=== PATIENT | female | born 1940 | race Caucasian/White ===

== ENCOUNTER 2023-05-10 11:01 | Outpatient (CLI) | payer MEDICARE, SELFPAY ==
--- NOTE | ~2023-05-10 | XR_ITS ---
AP and lateral views of the right hip Clinical history: Pain Findings: No acute fracture or dislocation is seen. Osseous alignment is anatomic. The right hip join t space is preserved, with mild spurring at the superolateral acetabular margin. Soft tissues are unr emarkable. 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 Reviewed, dictated and finalized at location . 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
--- NOTE | ~2023-05-10 | XR_ITS ---
EXAMINATION: XR lumbar spine min 4V DATE: 05/10/2023 11:36 INDICATION: Lumbago with sciatica. TECHNIQUE: 5 views of the lumbar spine were obtained. COMPARISON: None. FINDINGS: There is 6 degrees levocurvature of lumbar spine. There is 3 mm anterolisthesis of L4 on L5 and L5 on S1. Vertebral body heights are normal. There is moderately decreased disc height at L1-L2, severely decreased disc height at L2-L3 and L3-L4, and mildly decreased disc height at L4-L5. There is multilevel facet joint osteoarthritis, severe bilaterally at L4-L5 and L5-S1. IMPRESSION: 1. Severe lumbar spondylosis. Reviewed, dictated and finalized at location E. 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
--- NOTE | ~2023-05-10 | XR_ITS ---
Clinical Indication: Bronchitis PA and lateral views of the chest: Comparison: 07/13/2018 Findings: There is discoid atelectasis or scarring at the right lung base. Lungs are otherwise clear. . Cardiomediastinal silhouette is stable. Bones and soft tissues are unremarkable. Impression: Discoid atelectasis or scarring right lung base, otherwise clear lungs. Reviewed, dictated and finalized at location . 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
== END 2023-05-10 11:02 | disposition home or self-care (01) ==
LOC: ANHIMG 11:08
PROVIDERS: PCP Family Medicine; Visit Provider Family Medicine
DX: M54.42 Lumbago with sciatica, left side (principal); M54.41 Lumbago with sciatica, right side; G89.29 Other chronic pain; J20.9 Acute bronchitis, unspecified; M43.06 Spondylolysis, lumbar region
CPT/HCPCS: 71046; 72110; 73502

== ENCOUNTER 2025-02-07 16:00 | Outpatient (CLI) | payer MEDICARE, SELFPAY ==
--- OUTSIDE RECORDS SUMMARY | 2025-01-20 09:00 | XMS_ITS ---
Author Organization [facility] Address [address] [facility] [address] [place] [address] Care Team Providers Care Pricing Clerk Name Role Phone Tylor MORAN, Shan Primary Care Provider Shani Castaneda Unavailable [phone] Stacey Mehta Unavailable [phone] REASON FOR VISIT 3 month f/u Social History Sex Assigned At : Social History Observation Description Sex Assigned At Female Encounters Encounter Location Date Provider Diagnosis [facility] [employer] [facility] [address] [facility] [address] [place] [address] 01/20/2025 Stacey Carvajal Plan Of Treatment Next Appt Details Provider Name:Shani Ward , 08/08/2025 02:45:00 PM, [address], [facility] [address], [place], [address], Progress Notes * NANCY BALDOB:[birth year] (84 yo F)Acc No.[id number]:01/20/2025 Patient: Yeimy NANCY HERNÁNDEZ Provider: Kiel CARVAJAL LCSW :1940 A ge:84 Y S ex:Female Date:01/20/2025 [facility] Pcp:Shan Snider MD Data: * Chief Complaints: * 3 month f/u Billing Information: * Procedure Codes: * Electronic signature of Smitha Carvajal LCSW on 02/07/2025 at 04:02 PM CDT Sign off status: Pending Signatures: No Ad Hoc Signature Added * Provider: Kiel CARVAJAL LCSW Date: 1 Generated for Archie haskins/Nahed on: 04:02 PM CDT
--- OUTSIDE RECORDS SUMMARY | 2025-02-07 09:45 | XMS_ITS ---
Author Organization [facility] [employer] Address [address] [place] [address] Care Team Providers Care Line Operator Name Role Phone Shan Snider MD Primary Care Provider Shani Castaneda Unavailable [phone] Allergies Allergen (clinical drug ingredient) Drug/Non Drug Allergy documented on EMR Reaction Allergy Type Onset Date Status Substance with sulfonamide structure and antibacterial mechanism of action (substance) SULFA (SULFONAMIDE ANTIBIOTICS) (uncoded) Unknown Allergy 04/25/2023 Active REASON FOR VISIT 3 month f/u, Follow up psychological reason Medications Medication SIG (Take, Route, Frequency, Duration) Notes Start Date End Date Status Benzonatate 100 MG Capsule Oral 05/17/2023 Not-Taking Galantamine Hydrobromide ER 8 MG Capsule Extended Release 24 Hour Oral; Duration: 30 Days Active Benzonatate 200 MG Capsule Oral 05/17/2023 Not-Taking predniSONE 20 MG Tablet Oral 05/17/2023 Not-Taking Amoxicillin 875 MG Tablet Oral 05/17/2023 Not-Taking Entresto 97-103 mg Tablet Oral 05/17/2023 Active metFORMIN HCl ER 500 MG Tablet Extended Release 24 Hour Oral 05/17/2023 Active busPIRone HCl 5 MG Tablet TAKE 1 TABLET BY MOUTH TWICE DAILY; Duration: 90 Active Escitalopram Oxalate 5 MG Tablet TAKE 1 TABLET BY MOUTH DAILY; Duration: 90 Active Desvenlafaxine Succinate ER 50 MG Tablet Extended Release 24 Hour TAKE 1 TABLET BY MOUTH DAILY; Duration: 90 Active Levothyroxine Sodium 75 MCG Tablet Oral 05/17/2023 Active Metoprolol Succinate ER 25 MG Tablet Extended Release 24 Hour Oral 05/17/2023 Active Aspirin Adult Low Strength 81 MG Tablet Delayed Release Oral 05/17/2023 Active Atorvastatin Calcium 40 MG Tablet Oral 05/17/2023 Active ProAir HFA 108 (90 Base) MCG/ACT Aerosol Solution Inhalation 05/17/2023 Act jeffrey Escitalopram Oxalate 5 MG Tablet 1 tablet Orally Once a day; Duration: 90 days 02/07/2025 Active busPIRone HCl 5 MG Tablet 1 tablet Orall y Twice a day; Duration: 90 days 02/07/2025 08/06/2025 Active Desvenlafaxine ER 50 MG Tablet Extended Release 24 Hour 1 tablet Orally Once a day; Duration: 90 days 02/07/2025 Active Exelon 4.6 MG/24HR Patch 24 Hour 1 patch to skin Transdermal Once a day Active Nystatin 645879 UNIT/GM Cream External 05/17/2023 Active Ramelteon 8 MG Tablet 1 tablet at bedtim e as needed Orally Once a day; Duration: 90 days 02/07/2025 08/06/2025 Active Social History Tobacco Use: Social History Observation Description Date Details (start date - stop date) Never Smoker NA - NA Sex Assigned At : Social History Observation Description Sex Assigned At Female Social History Miscellaneous: Social Info Question Answer Notes Advance Care Planning Advance Directive FULL CODE Sexual History: Social Info Question Answer Notes Sexual History Had sex in the past 12 months (vaginal, oral, or anal)? No Household: Social Info Question Answer Notes Household Marital status: Drug/Alcohol: Social Info Question Answer Notes Drugs Have you used drugs other than those for medical reasons in the past 12 months? No AUDIT-C (Standard) Did you have a drink containing alcohol in the past year? No Points 0 Interpretation Negative Caffeine Intake: 1-2 cups per day Tobacco Use: Social Info Question Answer Notes Tobacco Control (Standard) Tobacco use: Nonsmoker Additional Findings: Tobacco non-user Current no nsmoker Additional Details Category Social Info Options Details Migrated Social History Migrated Social History Alcohol Intake: None 01/10/2023,Tobacco Years: Never smoker 04/25/2023 Drug/Alcohol: Do you smoke marijuana? Den ies Do you drink alcohol? No Vital Signs Blood pressure systolic 174 mm Hg 02/08/20 25 Blood pressure diastolic 72 mm Hg 025 Heart Rate 59 /min 02/07/2025 Respiratory Rate 15 /min 02/07/2025 Height 62.00 in 02/07/2025 Height-cm 157.48 cm 02/07/2025 Encounters Encounter Location Date Provider Diagnosis [facility] [employer] [facility] [address] [place] [address] 02/07/2025 Shani Ward Generalized anxiety disorder F41.1 ; MDD (major depressive disorder), recurrent episode, mild F33.0 ; Other fatigue R53.83 and Memory impairment R41.3 Assessments Encounter Date Diagnosis (ICD Code) Assessment Notes Treatment Notes Treatment Clinical Notes Section Notes 02/07/2025 Generalized anxiety disorder (ICD-10 - F41.1) Learning About Generalized Anxiety Disorder material was published, Generalized Anxiety Disorder: Care Instructions material was published, Learning About Anxiety Disorders material was published, Generalized Anxiety Disorder: Care Instructions material was published, Learning About Generalized Anxiety Disorder material was published, Learning About Anxiety Disorders material was published 1. depression - Pristiq 50 mg daily - educated on rx - monitor B/P- on B/P rx seen PCP patient having labs done today and fell today at home and daughter may take her to ER also- patient was examined by EMT/[employer] today educated on Lexapro 5 mg daily educated to stay hydrated discuss how therapy will help with grief, depression anxiety and coping skills she agreed continue therapy uses pill box - daughter helps her therapy for depression, anxiety, and grief seen PCP B/P and rx options monitor B/P and HR educated to stay hydrated and adequate food intake educated on deep breathing PT and has multi care technician in home SSRI side effects discussed including but not limited to, gastric upset, nausea, vomiting, diarrhea and/or constipation, weight changes, sexual side effects including loss of libido, increased suicidal thoughts/behaviors in children and young adults, and serotonin syndrome. educated on all medications, benefits, side effects and risk, and educated on depression, anxiety, and mood d/o and educated on compliance of medications, metabolic and movement d/o education appointment's, continue therapy discussion with patient about course of treatmentand patient instructions. education on serotonin syndrome pharmacogenomic panel, discuss 2. Generalized anxiety disorder - Pristiq 50 mg daily Buspar 5 mg twice a day with a meal 3. Fatigue- Ramelteon 8 mg at bedtime 4. Abnormal grief reaction -therapy- schedule 5. Memory issues- - rx [facility] for memory 03/10 unable to complete SLUMS 02/05/24 Discussion Notes conitnue rx [facility] for memory 03/10 HX CVA 02/07/2025 MDD (major depressive disorder), recurrent episode, mild (ICD-10 - F33.0) 1. depression - Pristiq 50 mg daily - educated on rx - monitor B/P- on B/P rx seen PCP patient having labs done today and fell today at home and daughter may take her to ER also- patient was examined by EMT/[employer] today educated on Lexapro 5 mg daily educated to stay hydrated discuss how therapy will help with grief, depression anxiety and coping skills she agreed continue therapy uses pill box - daughter helps her therapy for depression, anxiety, and grief seen PCP B/P and rx options monitor B/P and HR educated to stay hydrated and adequate food intake educated on deep breathing PT and has multi care technician in home SSRI side effects discussed including but not limited to, gastric upset, nausea, vomiting, diarrhea and/or constipation, weight changes, sexual side effects including loss of libido, increased suicidal thoughts/behaviors in children and young adults, and serotonin syndrome. educated on all medications, benefits, side effects and risk, and educated on depression, anxiety, and mood d/o and educated on compliance of medications, metabolic and movement d/o education appointment's, continue therapy discussion with patient about course of treatmentand patient instructions. education on serotonin syndrome pharmacogenomic panel, discuss 2. Generalized anxiety disorder - Pristiq 50 mg daily Buspar 5 mg twice a day with a meal 3. Fatigue- Ramelteon 8 mg at bedtime 4. Abnormal grief reaction -therapy- schedule 5. Memory issues- - rx [facility] for memory 03/10 unable to complete SLUMS 02/05/24 Discussion Notes conitnue rx [facility] for memory 03/10 HX CVA 02/07/2025 Other fatigue (ICD-10 - R53.83) Fatigue: Care Instructions material was published, Fatigue: Care Instructions material was published 1. depression - Pristiq 50 mg daily - educated on rx - monitor B/P- on B/P rx seen PCP patient having labs done today and fell today at home and daughter may take her to ER also- patient was examined by EMT/[employer] today educated on Lexapro 5 mg daily educated to stay hydrated discuss how therapy will help with grief, depression anxiety and coping skills she agreed continue therapy uses pill box - daughter helps her therapy for depression, anxiety, and grief seen PCP B/P and rx options monitor B/P and HR educated to stay hydrated and adequate food intake educated on deep breathing PT and has multi care technician in home SSRI side effects discussed including but not limited to, gastric upset, nausea, vomiting, diarrhea and/or constipation, weight changes, sexual side effects including loss of libido, increased suicidal thoughts/behaviors in children and young adults, and serotonin syndrome. educated on all medications, benefits, side effects and risk, and educated on depression, anxiety, and mood d/o and educated on compliance of medications, metabolic and movement d/o education appointment's, continue therapy discussion with patient about course of treatmentand patient instructions. education on serotonin syndrome pharmacogenomic panel, discuss 2. Generalized anxiety disorder - Pristiq 50 mg daily Buspar 5 mg twice a day with a meal 3. Fatigue- Ramelteon 8 mg at bedtime 4. Abnormal grief reaction -therapy- schedule 5. Memory issues- - rx [facility] for memory 03/10 unable to complete SLUMS 02/05/24 Discussion Notes conitnue rx [facility] for memory 03/10 HX CVA 02/07/2025 Memory impairment (ICD-10 - R41.3) 1. depression - Pristiq 50 mg daily - educated on rx - monitor B/P- on B/P rx seen PCP patient having labs done today and fell today at home and daughter may take her to ER also- patient was examined by EMT/[employer] today educated on Lexapro 5 mg daily educated to stay hydrated discuss how therapy will help with grief, depression anxiety and coping skills she agreed continue therapy uses pill box - daughter helps her therapy for depression, anxiety, and grief seen PCP B/P and rx options monitor B/P and HR educated to stay hydrated and adequate food intake educated on deep breathing PT and has multi care technician in home SSRI side effects discussed including but not limited to, gastric upset, nausea, vomiting, diarrhea and/or constipation, weight changes, sexual side effects including loss of libido, increased suicidal thoughts/behaviors in children and young adults, and serotonin syndrome. educated on all medications, benefits, side effects and risk, and educated on depression, anxiety, and mood d/o and educated on compliance of medications, metabolic and movement d/o education appointment's, continue therapy discussion with patient about course of treatmentand patient instructions. education on serotonin syndrome pharmacogenomic panel, discuss 2. Generalized anxiety disorder - Pristiq 50 mg daily Buspar 5 mg twice a day with a meal 3. Fatigue- Ramelteon 8 mg at bedtime 4. Abnormal grief reaction -therapy- schedule 5. Memory issues- - rx [facility] for memory 03/10 unable to complete SLUMS 02/05/24 Discussion Notes conitnue rx [facility] for memory 03/10 HX CVA 02/07/2025 Other Preventing Depression From Coming Back: Care Instructions material was published, Learning About Depression Screening material was published, Learning About Depression material was published, Depression Treatment: Care Instructions material was published, Preventing Depression From Coming Back: Care Instructions material was published, Learning About How to Get Help During a Mental Health Crisis material was published, Depression Treatment: Care Instructions material was published, Seasonal Affective Disorder: Care Instructions material was published, Learning About Depression material was published referral to the local chapter or national office of the Alzheimer's Association ( ; http://www.alz. org), the Alzheimer's Disease Education and Referral Center (ADEAR) ( ; http://www.talisha. nih.gov/Alzheim ers/), Adjustment Disorder: Care Instructions material was published, Adjustment Disorder: Care Instructions material was published 1. depression - Pristiq 50 mg daily - educated on rx - monitor B/P- on B/P rx seen PCP patient having labs done today and fell today at home and daughter may take her to ER also- patient was examined by EMT/[employer] today educated on Lexapro 5 mg daily educated to stay hydrated discuss how therapy will help with grief, depression anxiety and coping skills she agreed continue therapy uses pill box - daughter helps her therapy for depression, anxiety, and grief seen PCP B/P and rx options monitor B/P and HR educated to stay hydrated and adequate food intake educated on deep breathing PT and has multi care technician in home SSRI side effects discussed including but not limited to, gastric upset, nausea, vomiting, diarrhea and/or constipation, weight changes, sexual side effects including loss of libido, increased suicidal thoughts/behaviors in children and young adults, and serotonin syndrome. educated on all medications, benefits, side effects and risk, and educated on depression, anxiety, and mood d/o and educated on compliance of medications, metabolic and movement d/o education appointment's, continue therapy discussion with patient about course of treatmentand patient instructions. education on serotonin syndrome pharmacogenomic panel, discuss 2. Generalized anxiety disorder - Pristiq 50 mg daily Buspar 5 mg twice a day with a meal 3. Fatigue- Ramelteon 8 mg at bedtime 4. Abnormal grief reaction -therapy- schedule 5. Memory issues- - rx [facility] for memory 03/10 unable to complete SLUMS 02/05/24 Discussion Notes conitnue rx [facility] for memory 03/10 HX CVA Plan Of Treatment Medication Medication Name Sig Start Date Stop Date Notes Escitalopram Oxalate 5 MG Tablet 1 table t Orally Once a day; Duration: 90 days 02/07/2025 busPIRone HCl 5 MG Tablet 1 tablet Orall y Twice a day; Duration: 90 days 02/07/2025 08/06/2025 Desvenlafaxine ER 50 MG Tabl et Extended Release 24 Hour 1 tablet Orally Once a day; Duration: 90 days 02/07/2025 Ramelteon 8 MG Tablet 1 tablet at bedtim e as needed Orally Once a day; Duration: 90 days 02/07/2025 08/06/2025 Treatment Notes Assessment Notes Generalized anxiety disorder Learning Ab out Generalized Anxiety Disorder material was published, Generalized Anxiety Disorder: Care Instructions material was published, Learning About Anxiety Disorders material was published, Generalized Anxiety Disorder: Care Instructions material was published, Learning About Generalized Anxiety Disorder material was published, Learning About Anxiety Disorders material was published Other fatigue Fatigue: Care Instru ctions material was published, Fatigue: Care Instructions material was published Other Preventing Depression From Coming Back: Care Instructions material was published, Learning About Depression Screening material was published, Learning About Depression material was published, Depression Treatment: Care Instructions material was published, Preventing Depression From Coming Back: Care Instructions material was published, Learning About How to Get Help During a Mental Health Crisis material was published, Depression Treatment: Care Instructions material was published, Seasonal Affective Disorder: Care Instructions material was published, Learning About Depression material was published referral to the local chapter or national office of the Alzheimer's Association ( ; http://www.alz.org), the Alzheimer's Disease Education and Referral Center (ADECO) ( ; http://www.talisha.nih.gov/Alzheimers/), Adjustment Disorder: Care Instructions material was published, Adjustment Disorder: Care Instructions material was published Next Appt Details Follow Up: 6 Months, Reason: medication follow up Provider Name:Shani Ward , 08/08/2025 02:45:00 PM, [address], [address], [place], [address], History and Physical Notes * HPI (History of Present Illness) Category Sub-Category Detail Notes Category Not es History of Presenting Problem Depression screening done Follow up depression, anxiety and grief chronic since last visit reported in W/C I been doing ok on a whole, I fell today and bump on back head, and I was dizzy and headache none now, not at fall, sleep better than I was, appettite pretty good anxiety been good, depression a lot better, take all rx no s.e no psychosis no shweta no SI/HI, not sad at all, no agitation no anxious or resltess, I feel a lot better, W/C See transistor tester see memory neurologist provider and on new memory rx goes to [facility], has palliative care specialist and department aging [place] and hx falls, [facility] unable to complete SLUMS today 02/05/24- [facility] for memory 03/10 daughter present - fell today and firemen looked at her and may go to ER today she is going to hospital for labs today also, was sitting in chair and trying to get up and fell and hit hit corner wall and palliative care specialist try to help her up, her legs and arms not strong, eat 3 meals, some GI issues and also see memory neurologist provider and on new memory rx goes to [facility], she been doing pretty good has confusion and memory issues and other that she been doing well, hx falls going to [facility] for memory 03/10- on rx passed 10/02 son passed 11/26/22 mom passed age 105 HX covid 12/07 ETOH- none smoking- denies- former long time ago labs- last few months Notes: hx weight watchers hx Cymbalta increase last month to 90 mg in hospital and Lexapro 5 mg stopped - patient reported not much just a little felt different son's kids not seen r/t his and the kids called her after a time period and she also went though the courts for grand parents rights Shweta Reported by patient.Notes:denies Psychosis Reported by patient.Notes:hard to see-dry macular and wet hx images and not as well sleep I will see on núñez a lot time from my eyes and outline womens face and images dad standing at sink, dress pants on and shaving and no shirt on, when he first I smell cig smoke and mobley, when my mom she saw my standing there and angels and was talking to him, and I feel like someone is in bed with me and I will see on wall 2 avel and heart deck of cards and come on núñez when I was in [place] and normal size playing cards, I have not seen it since Psychotherapy InterventionReported by patient.Notes:refer to [facility] rx hx hx cymbalta 10/07, Lexapro 5mg 2022, Xanax, Ramelteon, Pristiq, Aricept, Exelon patch advance care planning discuss Depression screening PHQ-9 Little interest or pleasure in doing things: Several days Feeling down, depressed, or hopeless: Se veral days Trouble falling or staying asleep, or sl eeping too much: Several days Feeling tired or having little energy: S everal days Poor appetite or overeating: Not at all Feeling bad about yourself o r that you are a failure, or have let yourself or your family down: Not at all Trouble concentrating on thi ngs, such as reading the newspaper or watching television: Not at all Moving or speaking so slowly that other people could have noticed; or the opposite, being so fidgety or restless that you have been moving around a lot more than usual: Not at all Thoughts that you would be b jaron off or of hurting yourself in some way: Not at all Total Score: 4 Interpretation: Minimal Depression Intervention Depression Screening Findings: N egative Follow-Up for Depression: Psychiatric fo llow-up Suicide Risk Assessment Performed: 02/07 Denies SI/HI no plans or intent Functional Status Functional Status Assessment D ate of last completed Functional Status Assessment:: 02/07/2025 Fall Risk Assessment:: One f all with injury in the past year fell 02/07/25 hit head and daughter may plan to take to ER Depression Screening BLESSING-7 (2018 Edition) Feelin g nervous, anxious, or on edge: Several days Not being able to stop or control worryi ng: Not at all Worrying too much about different things : Not at all Trouble relaxing: Several days Being so restless that it is hard to sit still: Not at all Becoming easily annoyed or irritable: Se veral days Feeling afraid as if something awful yuki ht happen: Not at all Total BLESSING-7 Score: 3 If you checked any problems, how difficult have they made it for you to do your work, take care of things at home, or get along with other people?: Not difficult at all Interpretation of Total: (0 to 4) No Anx iety [place]-Suicide Severity Rating Scale Suicide Risk (CSRS-screener) in the past one month Have you wished you were or wished you could go to sleep and not wake up?: No in the past one month Have y ou actually had any thoughts of killing yourself?: No Examination Category Sub-Category Detail Notes Category Not es Neurology Cognition Assessment Tools Used Total score SLUMS: Unable to complete SLUMS 02/08/25 Psychiatry Appearance: well-groomed, we ll-nourished, appears stated age Attitude: cooperative Psychomotor activity: within normal rang e Abnormal body movements: none Attention: good Degree of awareness of surroundings: rica re daughter, surrounding and place and provider Affect / mood: appropriate, full ra nge Speech / language: appropriate pitch/mo dulation, clear and coherent, normal rate, volume, and articulation (RVR), proper grammar used Insight: good Judgement: good Thought process: intact Thought content: appropriate Perceptual disorders: no perceptual diso rder noted Aggression: low Anger control: good Suicidal ideation: none Homicidal ideation: none Impulse control: good Memory status: UNABLE TO COMPLETE S LUMS see specialist [facility] memory on rx Delusions: no Hallucinations: no Comprehension - Intellectual function: a verage Dementia Safety concern scree juve for dangerousness to self and environment risks provided:: Yes Gait W/C Progress Notes * GRUPO BAL:10[birth year]06 (84 yo F)Acc No.[id number]:02/07/2025 Patient: NANCY REID Provider: CLIFF GLORIA :1940 A ge:84 Y S ex:Female Date:02/07/2025 [address] [facility] Pcp:Shan Snider MD Subjective: * Chief Complaints: * 1 . 3 month f/u. 2. Follow up psychological reason. * HPI: D epression Screening: BLESSING-7 (2018 Edition) F eeling nervous, anxious, or on edge S everal days N ot being able to stop or control worrying?Not at all W orrying too much about different things N ot at all T rouble relaxing S everal days B eing so restless that it is hard to sit still N ot at all B ecoming easily annoyed or irritable S everal days F eeling afraid as if something awful might happen N ot at all T otal BLESSING-7 Score 3 I f you checked any problems, how difficult have they made it for you to do your work, take care of things at home, or get along with other people? N ot difficult at all I nterpretation of Total ( 0 to 4) No Anxiety [place]-Suicide Severity Rating Scale: Suicide Risk (CSRS-screener) i n the past one month Have you wished you were or wished you could go to sleep and not wake up? N o i n the past one month Have you actually had any thoughts of killing yourself? N o D epression screening: PHQ-9 L ittle interest or pleasure in doing things?Several days F eeling down, depressed, or hopeless S everal days T rouble falling or staying asleep, or sleeping too much S everal days F eeling tired or having little energy S everal days P oor appetite or overeating N ot at all F eeling bad about yourself or that you are a failure, or have let yourself or your family down N ot at all T rouble concentrating on things, such as reading the newspaper or watching television N ot at all M oving or speaking so slowly that other people could have noticed; or the opposite, being so fidgety or restless that you have been moving around a lot more than usual N ot at all T houghts that you would be better off or of hurting yourself in some way N ot at all T otal Score 4 I nterpretation M inimal Depression Intervention D epression Screening Findings N egative F ollow-Up for Depression P sychiatric follow-up S uicide Risk Assessment Performed 1 Denies SI/HI no plans or intent F unctional Status: Functional Status Assessment D ate of last completed Functional Status Assessment: F all Risk Assessment: O ne fall with injury in the past year fell 02/07/25 hit head and daughter may plan to take to ER H istory of Presenting Problem: Depression screening done Follow up depression, anxiety and grief chronic since last visit reported in W/C I been doing ok on a whole, I fell today and bump on back head, and I was dizzy and headache none now, not at fall, sleep better than I was, appettite pretty good anxiety been good, depression a lot better, take all rx no s.e no psychosis no shweta no SI/HI, not sad at all, no agitation no anxious or resltess, I feel a lot better, W/C See transistor tester see memory neurologist mckayla garcia and on new memory rx goes to [facility], has palliative care specialist and department aging [place] and hx falls, [employer]IT[employer]ANDE unable to complete SLUMS today 02/05/24- [facility] for memory 03/10 daughter present - fell today and firemen looked at her and may go to ER today she is going to hospital for labs today also, was sitting in chair and trying to get up and fell and hit hit corner wall and palliative care specialist try to help her up, her legs and arms not strong, eat 3 meals, some GI issues and also see memory neurologist provider and on new memory rx goes to [facility], she been doing pretty good has confusion and memory issues and other that she been doing well, hx falls going to [facility] for memory 03/10- on rx passed 10/02 son passed 11/26/22 mom passed age 105 HX covid 12/07 ETOH- none smoking- denies- former long time ago labs- last few months Notes: hx weight watchers hx Cymbalta increase last month to 90 mg in hospital and Lexapro 5 mg stopped - patient reported not much just a little felt different son's kids not seen r/t his and the kids called her after a time period and she also went though the courts for grand parents rights Shweta Reported by mckayla fletcher.Notes:denies Psychosis Reported by mckayla fletcher.Notes:hard to see-dry macular and wet hx images and not as well sleep I will see on núñez a lot time from my eyes and outline womens face and images dad standing at sink, dress pants on and shaving and no shirt on, when he first I smell cig smoke and mobley, when my mom she saw my standing there and angels and was talking to him, and I feel like someone is in bed with me and I will see on wall 2 avel and heart deck of cards and come on núñez when I was in [place] and normal size playing cards, I have not seen it since Psychotherapy InterventionReported by mckayla fletcher.Notes:refer to [facility] rx hx hx cymbalta 10/07, Lexapro 5mg 2022, Xanax, Ramelteon, Pristiq, Aricept, Exelon patch advance care planning discuss. * ROS: Mckayla fletcher reports v ision change and eye disease/injury; h luisa to see-dry macular and wet. She reports d ifficulty hearing ([employer]IT[employer] GRANDE). reported ears bother her and pain S he reports no shortness and no palpitations; mild heart attack 01/07. She reports NO cough and no wheezing no shortness of breath She report improved diarrhea comes and goes (Metformin) reported improved some on one Metformin now, BS monitored, no abdominal pain, reported chronic nausea with certain movement, no vomiting, less constipation, normal appetite, and no GERD. She reports m uscle weakness, arthralgias/joint pain, tail bone pain, back pain, neck pain, and difficulty walking (W/C- HX FALL) s ee PCP, transistor tester She reports w eakness and gait dysfunction (W/C and assistance with daughter) no seizures, no dizziness, no migraines, reported headaches with nausea, and no tremor. hx CVA fall and hit back head 10/24/25 at home daughter may take her to ER today seen by specialist employee labor relations EMT today and having labs today at hospital She reports improved depression, sleep disturbances, restless sleep, anxiety, and memory loss. worried See Specialist [facility]- memory She reports not daily f atigue. She reports no fever and no significant weight gain. hx URI and UTI- improved hx veritgo - PCP prescribe rx hx c ovid and pneumonia 01/07 Aspiration pneumonia 04/25/23. * Medical History: * Social History: T obacco Use: T obacco Control (Standard) T obacco use: N onsmoker A dditional Findings: Tobacco non-user C urrent nonsmoker M igrated Social History: M igrated Social History: Alcohol Intake: None 01/10/2023,Tobacco Years: Never smoker 04/25/2023. S exual History: S exual History H ad sex in the past 12 months (vaginal, oral, or anal)? N o D rug/Alcohol: D rugs H ave you used drugs other than those for medical reasons in the past 12 months? N o Caffeine I ntake: 1 -2 cups per day Do you smoke marijuana?: Denies. Do you drink alcohol?: No. AUDIT-C (Standard) D id you have a drink containing alcohol in the past year? N o P oints 0 I nterpretation N egative H ousehold: H ousehold M arital status: w idowed M iscellaneous: A dvance Care Planning A dvance Directive F ULL CODE S ocial History Verified. * Medications: T aking Ramelteon 8 MG Tablet 1 tablet at bedtime as needed Orally Once a day , Taking Exelon 4.6 MG/24HR Patch 24 Hour 1 patch to skin Transdermal Once a day , Taking Nystatin 787821 UNIT/GM Cream External , Taking Atorvastatin Calcium 40 MG Tablet Oral , Taking ProAir HFA 108 (90 Base) MCG/ACT Aerosol Solution Inhalation , Taking Levothyroxine Sodium 75 MCG Tablet Oral , Taking Metoprolol Succinate ER 25 MG Tablet Extended Release 24 Hour Oral , Taking Aspirin Adult Low Strength 81 MG Tablet Delayed Release Oral , Taking metFORMIN HCl ER 500 MG Tablet Extended Release 24 Hour Oral , Taking Entresto 97-103 mg Tablet Oral , Taking Escitalopram Oxalate 5 MG Tablet TAKE 1 TABLET BY MOUTH DAILY , Taking Desvenlafaxine Succinate ER 50 MG Tablet Extended Release 24 Hour TAKE 1 TABLET BY MOUTH DAILY , Taking busPIRone HCl 5 MG Tablet TAKE 1 TABLET BY MOUTH TWICE DAILY , Taking Galantamine Hydrobromide ER 8 MG Capsule Extended Release 24 Hour Oral , Not-Taking Benzonatate 200 MG Capsule Oral , Not-Taking predniSONE 20 MG Tablet Oral , Not-Taking Amoxicillin 875 MG Tablet Oral , Not-Taking Benzonatate 100 MG Capsule Oral , Medication List reviewed and reconciled with the patient * Allergies: S ULFA (SULFONAMIDE ANTIBIOTICS): Allergy - Onset Date 04/25/2023. Allergies Verified. Objective: * Vitals: B P:174/72mm Hg, HR:59/min, RR:15/min, Wt: Not Taken - Declined by Patient, Ht: 62.00 in, Ht-cm: 157.48 cm. * Examination: P sychiatry: Dementia ?Appearance:?well-groomed, well-nourished, appears stated age.?Abnormal body movements:?none.?Affect / mood:?appropriate, full range.?Aggression:?low.?Anger control:?good.?Attention:?good.?Attitude:?cooperative.?Gait?W/C.?Homicidal ideation:?none.?Suicidal ideation:?none.?Memory status:?UNABLE TO COMPLETE SLUMS ?see specialist [facility] memory on rx. ?Degree of awareness of surroundings:?aware daughter, surrounding and place and provider.?Delusions:?no.?Hallucinations:?no.?Impulse control:?good.?Insight:?good.?Comprehension - Intellectual function:?average.?Judgement:?good.?Perceptual disorders:?no perceptual disorder noted.?Psychomotor activity:?within normal range.?Speech / language:?appropriate pitch/modulation, clear andcoherent, normal rate, volume, and articulation (RVR), proper grammar used.?Thought content:?appropriate.?Thought process:?intact.?Neurology: ?Cognition Assessment Tools Used? Total score SLUMS U nable to complete SLUMS 02/08/25 ??? Assessment: * Assessment: 1. 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 G eneralized anxiety disorder - F41.1 3 . O ther fatigue - R53.83 ? 4 . M mary carmen impairment - R41.3 1. depression - Pristiq 50 mg daily - educated on rx - monitor B/P- on B/P rx seen PCP patient having labs done today and fell today at home and daughter may take her to ER also- patient was examined by EMT/[employer] today educated onLexapro 5 mg daily educated to stay hydrated discuss how therapy will help with grief, depression anxiety and coping skills she agreed continue therapy uses pill box - daughter helps her therapy for depression, anxiety, and grief seen PCP B/P and rx options monitor B/P and HR educated to stay hydrated and adequate food intake educated on deep breathing PT and has multi care technician in home SSRI side effects discussed including but not limited to, gastric upset, nausea, vomiting, diarrhea and/or constipation, weight changes, sexual side effects including loss of libido, increased suicidal thoughts/behaviors in children and young adults, and serotonin syndrome. educated on all medications, benefits, side effects and risk, and educated on depression, anxiety, and mood d/o and educated on compliance of medications, metabolic and movement d/o education appointment's, continue therapy discussion with patient about course of treatmentand patient instructions. education on serotonin syndrome pharmacogenomic panel, discuss 2. Generalized anxiety disorder - Pristiq 50 mg daily Buspar 5 mg twice a day with a meal 3. Fatigue-Ramelteon 8 mg at bedtime 4. Abnormal grief reaction -therapy- schedule 5. Memory issues- - rx [facility] memory 03/10 unable to complete SLUMS 02/05/24 Discussion Notes marlysitnue rx [facility] memory 03/10 HX CVA Plan: * Treatment: 2. G eneralized anxiety disorder Continue busPIRone HCl Tablet, 5 MG, 1 tablet, Orally, Twice a day, 90 days, 180 Tablet, Refills 1.? Notes: Learning About Generalized Anxiety Disorder material was published, Generalized Anxiety Disorder: Care Instructions material was published, Learning About Anxiety Disorders material was published, Generalized Anxiety Disorder: Care Instructions material was published, Learning About Generalized Anxiety Disorder material was published, Learning About Anxiety Disorders material was published? 3. O ther fatigue Refill Ramelteon Tablet, 8 MG, 1 tablet at bedtime as needed, Orally, Once a day, 90 days, 90 Tablet, Refills 1. Notes: Fatigue: Care Instructions material was published, Fatigue: Care Instructions material was published 4. O thers Notes: Preventing Depression From Coming Back: Care Instructions material was published, Learning About Depression Screening material was published, Learning About Depression material was published, Depression Treatment: Care Instructions material was published, Preventing Depression From Coming Back: Care Instructions material was published, Learning About How to Get Help During a Mental Health Crisis material was published, Depression Treatment: Care Instructions material was published, Seasonal Affective Disorder: Care Instructions material was published, Learning About Depression material was published r jaal to the local chapter or national office of the Alzheimer's Association ( ;http://www.alz.org), the Alzheimer's Disease Education and Referral Center (ADECO) ( ;http://www.talisha.nih.gov/Alz heimers/), Adjustment Disorder: Care Instructions material was published, Adjustment Disorder: Care Instructions material was published * Procedure Codes: 1 036F TOBACCO NON-USER, 55246 BEHAV ASSMT W/SCORE & DOCD/STAND INSTRUMENT, G2211 VISIT COMPLEXITY INHERENT TO ONGOING CARE RELATED TO A PATIENT'S SINGLE, SERIOUS CONDITION OR A COMPLEX CONDITION * Preventive Medicine: Counseling: B P Management: X , FIRST HYPERTENSIVE BP READING FOLLOW-UP PLAN: F ollow-up 1 month Follow up with your PCP LIFESTYLE RECOMMENDATION: L ifestyle education REFERRAL TO ALTERNATIVE / PRIMARY CARE PROVIDER: Ye urias to general medical service B/P EDUCATIONeducated on healthy b/p 120/80monitor b/p at homerefer to PCP,heart healthy diet and exciselimit salt intakelimit soda intake and caffieneincrease water WEIGHT REDUCTION RECOMMENDATION: W eight-reducing diet education DIETARY RECOMMENDATIONS: D iet education Dietary Healthy-Heart Diet Screenings: D epression screening Have you had a recent depression screening? Y es * Follow Up: 6 Months (Reason: medication follow up) Billing Information: * Visit Code: [id number] OFFICE OUTPATIENT VISIT 25 MINUTES DETAILED HISTORY AND EXAM/MODERATE MEDICAL DECISION MAKING. * Procedure Codes: 1036F TOBACCO NON-USER. 26358 BEHAV ASSMT W/SCORE & DOCD/STAND INSTRUMENT. G2211 VISIT COMPLEXITY INHERENT TO ONGOING CARE RELATED TO A PATIENT'S SINGLE, SERIOUS CONDITION OR A COMPLEX CONDITION. * Sign off status: Completed true * Provider: CLIFF GLORIA Date: Generated for Archie haskins/Gema/Reggie on: 04:03 PM CDT
--- OUTSIDE RECORDS SUMMARY | 2025-02-07 16:02 | XMS_ITS | Clinical Summary ---
Author Organization [facility] Address [address] [place] [address] Care Team Providers Care Cigarette Making Examiner Name Role Phone Shan Snider MD Primary Care Provider [phone] Source Comments [facility],non-owned Affiliates and Associated Physician Practices is amultiple site organization consisting of ambulatory clinics and hospital sitesin [place], [place], [place] and [place]. This disclosure is being madepursuant to the Care Everywhere program and may not contain all information available regarding this patient. Last updated 18.[facility] Allergies Active Allergy Reactions Criticality Noted Date Comments Clonidine Other High 05/22/2023 Sulfacetamide Rash Medium 04/19/2023 Medications * Be aware that medications may not be up to date on this document. Alwaysverify current medications with the patient. DULoxetine (Cymbalta) 60 MG capsule Take 1 (one) capsule by mouth once daily 11/24/19 23 Active metFORMIN (Glucophage) 500 MG tablet Take 2 (two) tablets by mouth 2 times daily with morning and evening meal Active omeprazole (PriLOSEC) 20 MG capsule Take 1 (one) capsule by mouth daily before breakfast Active guaiFENesin ER 12hr (Mucinex) 600 MG tablet Take 1 (one) tablet by mouth every 12 hours Active enoxaparin (Lovenox) 30 MG/0.3ML injection Inject 30 (thirty) mg subcutaneously once daily Active calcium citrate-vitamin D (Citracal Plus D) 315-5 MG-MCG tablet Take 1 (one) tablet by mouth once daily Active empagliflozin (Jardiance) 25 MG tablet Take 1 (one) tablet by mouth once daily Active meclizine (Antivert) 25 MG tablet Take 1 (one) tablet by mouth 3 times daily as needed for Dizziness Active Coenzyme Q10 (CoQ10) 30 MG Take by mouth once daily Active levothyroxine (Synthroid) 75 MCG tablet Take 1 (one) tablet by mouth daily before breakfast Active atorvastatin (Lipitor) 40 MG tablet Take 1 (one) tablet by mouth at bedtime Active metoprolol succinate XL 24hr (Toprol XL) 100 MG tablet Take 1 (one) tablet by mouth once daily Active ascorbic acid (Vitamin C) 250 MG tablet Take 4 (four) tablets by mouth once daily Active multivitamin daily tablet Take 1 (one) tablet by mouth daily with food Active aspirin EC (Ecotrin) 81 MG tablet Take 1 (one) tablet by mouth once daily Active digoxin (Lanoxin) 0.125 MG tabletIndications: Cerebrovascular accident (CVA), unspecified mechanism (HCC) Take 1 (one) tablet by mouth once daily 90 tablet 4 06/15/19 24 Active Additional Information Patient not taking.Reported on 10/12/2023 nitrofurantoin monohyd macro crystals (Macrobid) 100 MG capsule Take 1 (one) capsule by mouth 2 times daily with morning and evening meal Active desvenlafaxine succinate ER 24hr (Pristiq) 50 MG tablet Take 1 (one) tablet by mouth once daily Active senna-docusate (SB Docusate Sodium/Senna) 8.6-50 MG tablet Take 1 (one) tablet by mouth 2 times daily Active ramelteon (Rozerem) 8 MG tablet Take 1 (one) tablet by mouth nightly as needed for Insomnia Active sacubitril-valsart an (Entresto) 24-26 MG tabletIndications: Acquired hypothyroidism,Lesli vular heart disease,Leg swelling,Dilated cardiomyopathy (HCC) Take 1 (one) tablet by mouth 2 times daily 90 tablet 1 10/12/19 24 Active spironolactone (Aldactone) 25 MG tabletIndications: Acquired hypothyroidism,Lesli vular heart disease,Leg swelling Take 0.5 (one-half) tablet by mouth every 2 days 90 tablet 4 10/12/19 24 Active Active Problems No known active problems Social History Tobacco Use Types Packs/Day Years Used Date Smoking Tobacco: Former Cigarettes Smokeless Tobacco: Never Tobacco Cessation:Counseling Given: Not Answered Alcohol Use Standard Drinks/Week Comments Not Currently 0 (1 standard drink = 0.6 oz pur e alcohol) PHQ-2 Answer Date Recorded Patient Health Questionnaire-2 Score 0 10/12/2023 Comments Unknown Sex and Gender Information Value Date Recorded Sex Assigned at Not on file Legal Sex Female 6:32 PM [employer] Gender Identity Not on file Sexual Orientation Not on file Last Filed Vital Signs Vital Sign Reading Time Taken Comments Blood Pressure 118/94 10/12/2023 10:24 AM CDT Pulse 82 10/12/2023 10:24 AM CDT Temperature - - Respiratory Rate 14 10/12/2023 10:24 AM CDT Oxygen Saturation 98% 10/12/2023 10:24 AM CDT Inhaled Oxygen Concentration - - Weight 83.6 kg (184 lb 6.4 oz) 06/15/2023 8:14 A M [employer] Height 154.9 cm (5' 1) 10/12/2023 10:24 AM CDT Body Mass Index - - Plan of Treatment Health Maintenance Due Date Last Done Comments BONE DENSITY TESTING 1940 DTAP/TDAP/TD VACCINES (1 - Tdap) 10/07/1959 PNEUMOCOCCAL VACCINE 50+ (1 of 1 - PCV) 1990 ZOSTER VACCINE (1 of 2) 1990 Respiratory Syncytial Virus (RSV) Vaccine Pt: or over 60 yrs (1 - 1-dose 75+ series) 10/07/2015 DEPRESSION SCREENING 04/17/2024 06/15/2023 MEDICARE AWV CALENDAR YEAR 2024 COVID-19 VACCINE (1 - 2023-2 5 season) 2024 INFLUENZA VACCINE (#1) 2024 HEPATITIS B VACCINE Aged Out No longe r eligible based on patient's age to complete this topic HIB VACCINE Aged Out No longer eligi ble based on patient's age to complete this topic HPV VACCINE Aged Out No longer eligi ble based on patient's age to complete this topic MENINGOCOCCAL (Group B) VACC INE SHARED DECISION-MAKING Aged Out No longer eligibl e based on patient's age to complete this topic MENINGOCOCCAL GROUPS A/C/Y/W VACCINE Aged Out No longer eligible b ased on patient's age to complete this topic Insurance [facility] MANAGED MEDICARE ADV Care Teams Cigarette Making Examiner Relationship Specialty Start Date End Date Shan Snider MD [address] [place] [place] [id number] PCP - General Family Medicine 10/12/23
--- OUTSIDE RECORDS SUMMARY | 2025-02-07 16:03 | XMS_ITS | Patient Health Record ---
Author Organization [facility] As [employer] [facility] Address [address] [place] [address] Care Team Providers Care Millinery Copyist Name Role Phone Shan Snider MD Primary Care Provider Shani Castaneda Unavailable [phone] Stacey Mehta Unavailable [phone] Allergies Allergen (clinical drug ingredient) Drug/Non Drug Allergy documented on EMR Reaction Allergy Type Onset Date Status Substance with sulfonamide structure and antibacterial mechanism of action (substance) SULFA (SULFONAMIDE ANTIBIOTICS) (uncoded) Unknown Allergy 04/25/2023 Active Reason For Referral No Information Medications Medication SIG (Take, Route, Frequency, Duration) Notes Start Date End Date Status Entresto 97-103 mg Tablet Oral 05/17/2023 Active Levothyroxine Sodium 75 MCG Tablet Oral 05/17/2023 Active Benzonatate 100 MG Capsule Oral 05/17/2023 Not-Taking Metoprolol Succinate ER 25 MG Tablet Extended Release 24 Hour Oral 05/17/2023 Active Galantamine Hydrobromide ER 8 MG Capsule Extended Release 24 Hour Oral; Duration: 30 Days Active Aspirin Adult Low Strength 81 MG Tablet Delayed Release Oral 05/17/2023 Active metFORMIN HCl ER 500 MG Tablet Extended Release 24 Hour Oral 05/17/2023 Active Escitalopram Oxalate 5 MG Tablet 1 tablet Orally Once a day; Duration: 90 days 02/07/2025 Active busPIRone HCl 5 MG Tablet 1 tablet Orall y Twice a day; Duration: 90 days 02/07/2025 08/06/2025 Active Desvenlafaxine ER 50 MG Tablet Extended Release 24 Hour 1 tablet Orally Once a day; Duration: 90 days 02/07/2025 Active Ramelteon 8 MG Tablet 1 tablet at bedtim e as needed Orally Once a day; Duration: 90 days 02/07/2025 08/06/2025 Active Exelon 4.6 MG/24HR Patch 24 Hour 1 patch to skin Transdermal Once a day Active busPIRone HCl 5 MG Tablet TAKE 1 TABLET BY MOUTH TWICE DAILY; Duration: 90 Active Nystatin [id number] UNIT/GM Cream External 05/17/2023 Active Benzonatate 200 MG Capsule Oral 05/17/2023 Not-Taking Atorvastatin Calcium 40 MG Tablet Oral 05/17/2023 Active predniSONE 20 MG Tablet Oral 05/17/2023 Not-Taking ProAir HFA 108 (90 Base) MCG/ACT Aerosol Solution Inhalation 05/17/2023 Act jeffrey Amoxicillin 875 MG Tablet Oral 05/17/2023 Not-Taking Escitalopram Oxalate 5 MG Tablet TAKE 1 TABLET BY MOUTH DAILY; Duration: 90 Active Desvenlafaxine Succinate ER 50 MG Tablet Extended Release 24 Hour TAKE 1 TABLET BY MOUTH DAILY; Duration: 90 Active Social History Tobacco Use: Social History [...] Den ies Do you drink alcohol? No Problems Problem Type SNOMED Code ICD Code Onset Dates Problem Status W/U Status Risk Notes Problem Moderate recurrent major depression (44091184) Major depressive disorder, recurrent, moderate (F33.1) 05/16/19 Active confirmed Problem Generalized anxiety disorder (48433606) Generalized anxiety disorder (F41.1) 05/16/19 Active confirmed Problem Adjustment disorder (68697285) Adjustment disorder, unspecified (F43.20) 04/25/19 Active confirmed Problem Fatigue (50805938) Other fatigue (R53.83) 04/25/19 Active confirmed Problem Screening for cardiovascular system disease (864486442) Encounter for screening for cardiovascular disorders (Z13.6) Active confirmed Problem Dietary management surveillance (607105366) Dietary counseling and surveillance (Z71.3) Active confirmed Problem Depression Screening (737097777) Encounter for screening for depression (Z13.31) Active confirmed Problem Mild recurrent major depression (18110735) MDD (major depressive disorder), recurrent episode, mild (F33.0) Active confirmed Problem Memory impairment (286617361) Memory impairment (R41.3) Active confirmed Vital Signs Heart Rate 59 /min 02/07/2025 Respiratory Rate 15 /min 02/07/2025 Height-cm 157.48 cm 02/07/2025 Blood pressure diastolic 72 mm Hg 02/07/2025 Height 62.00 in 02/07/2025 Blood pressure systolic 174 mm Hg 02/07/2025 Encounters Encounter Location Date Provider Diagnosis [facility] [address] [facility] [address] [place] [address] 03/18/2024 Stacey Herman Major depressive disorder, recurrent, moderate F33.1 ; Generalized anxiety disorder F41.1 and Adjustment disorder, unspecified F43.20 [facility] [employer] [facility] [address] [place] [address] [address] [facility] [address] [place] [address] 03/18/2024 Shani Ward Major depressive disorder, recurrent, moderate F33.1 ; Generalized anxiety disorder F41.1 ; Other fatigue R53.83 and Adjustment disorder, unspecified F43.20 [facility] [address] [facility] [address] [place] [address] 06/24/2024 Shani Ward Major depressive disorder, recurrent, moderate F33.1 ; Generalized anxiety disorder F41.1 ; Other fatigue R53.83 ; Adjustment disorder, unspecified F43.20 ; Encounter for screening for depression Z13.31 ; Encounter for screening for cardiovascular disorders Z13.6 and Dietary counseling and surveillance Z71.3 [facility] [employer] [address] [address] 07/22/2024 Shani Ward Encounter for screening for depression Z13.31 ; Major depressive disorder, recurrent, moderate F33.1 ; Generalized anxiety disorder F41.1 ; Other fatigue R53.83 ; Adjustment disorder, unspecified F43.20 ; Encounter for screening for cardiovascular disorders Z13.6 ; Dietary counseling and surveillance Z71.3 and Memory impairment R41.3 [facility] [employer] [address] [address] 10/21/2024 Shani Ward Encounter for screening for depression Z13.31 ; MDD (major depressive disorder), recurrent episode, mild F33.0 ; Generalized anxiety disorder F41.1 ; Other fatigue R53.83 ; Adjustment disorder, unspecified F43.20 ; Encounter for screening for cardiovascular disorders Z13.6 ; Dietary counseling and surveillance Z71.3 and Memory impairment R41.3 [facility] [employer] [address] [address] 10/21/2024 Stacey Herman Major depressive disorder, recurrent, moderate F33.1 ; Generalized anxiety disorder F41.1 and Encounter for screening for depression Z13.31 [facility] [employer] [address] [address] 02/07/2025 Shani Ward Generalized anxiety disorder F41.1 ; MDD (major depressive disorder), recurrent episode, mild F33.0 ; Other fatigue R53.83 and Memory impairment R41.3 [facility] [employer] [address] [address] 07/03/2024 Shani Ward Major depressive disorder, recurrent, moderate F33.1 Assessments Encounter Date Diagnosis (ICD Code) Assessment Notes Treatment Notes Treatment Clinical Notes Section Notes 03/18/2024 Major depressive disorder, recurrent, moderate (ICD-10 - F33.1) Mobility and Fall Risk - Assessment: Patient expresses fear of falling and sometimes sometimes is hesitant to participate in exercises and walking. Patient is able to walk short distances with assistance and a gait belt, but becomes anxious and wants to sit down. Caregivers are encouraging patient to stand up and walk, using a wheelchair behind her for safety. Dehydration - Assessment: Patient is not drinking enough fluids unless reminded. Caregivers are providing Pedialyte occasionally to combat potential dehydration. - Plan: - Consider recommending flavored, low-sugar drinks like Olipop to encourage fluid intake. Social Support and Living Situation - Assessment: Patient has a live-in caregiver, which has been beneficial. Patient is concerned about the long-term viability of staying in her current home. Patient expresses a desire to stay in her home for up to a year if possible. - Plan: - Continue to support patient's desire to remain at home while monitoring safety and ability to function. - Begin discussions about potential future living arrangements and associated financial considerations. Nutrition - Assessment: Patient is eating well with assistance from caregivers. - Plan: - Encourage continued good nutrition and monitor weight. Cognitive Stimulation - Assessment: Patient is using audiobooks for entertainment and cognitive stimulation. - Plan: - Continue to encourage use of audiobooks and other cognitive activities. Holiday Plans - Assessment: Patient expresses a desire to visit family for [place], which can serve as motivation for maintaining mobility. - Plan: - Use upcoming holiday plans as motivation for patient to continue with exercises and mobility efforts. 03/18/2024 Generalized anxiety disorder (ICD-10 - F41.1) Mobility and Fall Risk - Assessment: Patient expresses fear of falling and sometimes sometimes is hesitant to participate in exercises and walking. Patient is able to walk short distances with assistance and a gait belt, but becomes anxious and wants to sit down. Caregivers are encouraging patient to stand up and walk, using a wheelchair behind her for safety. Dehydration - Assessment: Patient is not drinking enough fluids unless reminded. Caregivers are providing Pedialyte occasionally to combat potential dehydration. - Plan: - Consider recommending flavored, low-sugar drinks like Olipop to encourage fluid intake. Social Support and Living Situation - Assessment: Patient has a live-in caregiver, which has been beneficial. Patient is concerned about the long-term viability of staying in her current home. Patient expresses a desire to stay in her home for up to a year if possible. - Plan: - Continue to support patient's desire to remain at home while monitoring safety and ability to function. - Begin discussions about potential future living arrangements and associated financial considerations. Nutrition - Assessment: Patient is eating well with assistance from caregivers. - Plan: - Encourage continued good nutrition and monitor weight. Cognitive Stimulation - Assessment: Patient is using audiobooks for entertainment and cognitive stimulation. - Plan: - Continue to encourage use of audiobooks and other cognitive activities. Holiday Plans - Assessment: Patient expresses a desire to visit family for [place], which can serve as motivation for maintaining mobility. - Plan: - Use upcoming holiday plans as motivation for patient to continue with exercises and mobility efforts. 03/18/2024 Major depressive disorder, recurrent, moderate (ICD-10 - F33.1) Preventing Depression From Coming Back: Care Instructions [...] published, Learning About Depression material was published 1. Moderate recurrent major depression - Pristiq 50 mg daily - educated on rx - monitor B/P educated to stay hydrated discuss how therapy will help with grief, depression anxiety and coping skills she agreed continue therapy uses pill box - daughter helps herrefer to therapy for depression, anxiety, and grief seen PCP B/P and rx options monitor B/P and HR educated to stay hydrated and adequate food intake educated on deep breathing PT and has customer care associate in home SSRI side effects discussed including but not limited to, gastric upset, nausea, vomiting, diarrhea and/or constipation, weight changes, sexual side effects including loss of libido, increased suicidal thoughts/behavior s in children and young adults, and serotonin syndrome. educated on all medications, benefits, side effects and risk, and educated on depression, anxiety, and mood d/o and educated on compliance of medications, metabolic and movement d/o education appointment's, continue therapy discussion with patient about course of treatmentand patient instructions. education on serotonin syndrome pharmacogenomic panel, discuss 2. Generalized anxiety disorder -Pristiq 50 mg daily Buspar 5 mg twice a day with a meal 3. Fatigue- Ramelteon 8 mg at bedtime 4. Abnormal grief reaction -therapy- schedule 5. Memory issues- short term- [facility] for memory 03/10 unable to complete SLUMS 02/05/24 Discussion Notes conitnue rx [facility] memory 03/10 HX CVA 06/24/2024 Major depressive disorder, recurrent, moderate (ICD-10 - F33.1) Preventing Depression From Coming Back: Care Instructions [...] published, Learning About Depression material was published 1. depression - Pristiq 50 mg daily - educated on rx - monitor B/P- on B/P rx seen PCP Patient was on Lexapro 5 mg 12/07 and helped anxiety and depression per patient and daughter educated on Lexapro 5 mg daily educated to stay hydrated discuss how therapy will help with grief, depression anxiety and coping skills she agreed continue therapy uses pill box - daughter helps herrefer to therapy for depression, anxiety, and grief seen PCP B/P and rx options monitor B/P and HR educated to stay hydrated and adequate food intake educated on deep breathing PT and has customer care associate in home SSRI side effects discussed including but not limited to, gastric upset, nausea, vomiting, diarrhea and/or constipation, weight changes, sexual side effects including loss of libido, increased suicidal thoughts/behavior s in children and young adults, and serotonin [...] grief reaction -therapy- schedule 5. Memory issues- short term- [facility] for memory 03/10 unable to complete SLUMS 02/05/24 Discussion Notes conitnue rx [facility] 03/10 HX CVA 10/21/2024 Major depressive disorder, recurrent, moderate (ICD-10 - F33.1) 10/21/2024 Generalized anxiety disorder (ICD-10 - F41.1) 07/22/2024 Encounter for screening for depression (ICD-10 - Z13.31) 1. depression - Pristiq 50 mg daily - educated on rx - monitor B/P- on B/P rx seen PCP Patient on Lexapro 5 mg 12/07 and helped anxiety and depression per patient and daughter educated on Lexapro 5 mg daily educated [...] educated on deep breathing PT and has customer care associate in home SSRI side effects discussed including but not limited to, gastric upset, nausea, vomiting, diarrhea and/or constipation, weight changes, sexual side effects including loss of libido, increased suicidal thoughts/behavior s in children and young adults, and serotonin [...] grief reaction -therapy- schedule 5. Memory issues- short term- rx Aricept [facility] for memory 03/10 unable to complete SLUMS 02/05/24 Discussion Notes conitnue rx [facility] for memory 03/10 HX CVA 02/07/2025 Generalized anxiety disorder (ICD-10 - F41.1) [...] to ER also- patient was examined by EMT/Senior [employer] today educated on Lexapro 5 mg daily [...] educated on deep breathing PT and has customer care associate in home SSRI side effects discussed including but not limited to, gastric upset, nausea, vomiting, diarrhea and/or constipation, weight changes, sexual side effects including loss of libido, increased suicidal thoughts/behavior s in children and young adults, and serotonin [...] -therapy- schedule 5. Memory issues- - rx [facility] for memory 03/10 unable to complete SLUMS 02/05/24 Discussion Notes conitnue rx [facility] for memory 03/10 HX CVA 10/21/2024 Encounter for screening for depression (ICD-10 - Z13.31) 1. depression - Pristiq 50 mg daily - educated on rx - monitor B/P- on B/P rx seen PCP Patient on Lexapro 5 mg 12/07 and helped anxiety and depression per patient and daughter educated on Lexapro 5 mg daily educated [...] educated on deep breathing PT and has customer care associate in home SSRI side effects discussed including but not limited to, gastric upset, nausea, vomiting, diarrhea and/or constipation, weight changes, sexual side effects including loss of libido, increased suicidal thoughts/behavior s in children and young adults, and serotonin [...] -therapy- schedule 5. Memory issues- - rx Exelon patch [facility] for memory 03/10 unable to complete SLUMS 02/05/24 Discussion Notes conitnue rx [facility] for memory 03/10 HX CVA 10/21/2024 MDD (major depressive disorder), recurrent episode, mild (ICD-10 - F33.0) 1. depression - Pristiq 50 mg daily - educated on rx - monitor B/P- on B/P rx seen PCP Patient on Lexapro 5 mg 12/07 and helped anxiety and depression per patient and daughter educated on Lexapro 5 mg daily educated [...] educated on deep breathing PT and has customer care associate in home SSRI side effects discussed including but not limited to, gastric upset, nausea, vomiting, diarrhea and/or constipation, weight changes, sexual side effects including loss of libido, increased suicidal thoughts/behavior s in children and young adults, and serotonin [...] -therapy- schedule 5. Memory issues- - rx Exelon patch [facility] for memory 03/10 unable to complete SLUMS 02/05/24 Discussion Notes conitnue rx [facility] for memory 03/10 HX [...] to ER also- patient was examined by EMT/[employer]ior [employer] today educated on Lexapro 5 mg daily [...] educated on deep breathing PT and has customer care associate in home SSRI side effects discussed including but not limited to, gastric upset, nausea, vomiting, diarrhea and/or constipation, weight changes, sexual side effects including loss of libido, increased suicidal thoughts/behavior s in children and young adults, and serotonin [...] -therapy- schedule 5. Memory issues- - rx [facility] for memory 03/10 unable to complete SLUMS 02/05/24 Discussion Notes conitnue rx [facility] for memory 03/10 HX CVA 02/07/2025 MDD (major depressive disorder), recurrent episode, mild (ICD-10 - F33.0) 1. depression - Pristiq 50 mg daily - educated on rx - monitor B/P- on B/P rx seen PCP patient having labs done today and fell today at home and daughter may take her to ER also- patient was examined by EMT/[employer]ior [employer] today educated on Lexapro 5 mg daily [...] educated on deep breathing PT and has customer care associate in home SSRI side effects discussed including but not limited to, gastric upset, nausea, vomiting, diarrhea and/or constipation, weight changes, sexual side effects including loss of libido, increased suicidal thoughts/behavior s in children and young adults, and serotonin [...] -therapy- schedule 5. Memory issues- - rx [facility] for memory 03/10 unable to complete SLUMS 02/05/24 Discussion Notes conitnue rx [facility] for memory 03/10 HX CVA 10/21/2024 Encounter for screening for depression (ICD-10 - Z13.31) 10/21/2024 Generalized anxiety disorder (ICD-10 - F41.1) Learning [...] monitor B/P- on B/P rx seen PCP Patient on Lexapro 5 mg 12/07 and helped anxiety and depression per patient and daughter educated on Lexapro 5 mg daily educated [...] educated on deep breathing PT and has customer care associate in home SSRI side effects discussed including but not limited to, gastric upset, nausea, vomiting, diarrhea and/or constipation, weight changes, sexual side effects including loss of libido, increased suicidal thoughts/behavior s in children and young adults, and serotonin [...] -therapy- schedule 5. Memory issues- - rx Exelon patch [facility] for memory 03/10 unable to complete SLUMS 02/05/24 Discussion Notes conitnue rx [facility] for memory 03/10 HX CVA 06/24/2024 Generalized anxiety disorder (ICD-10 - F41.1) Learning [...] monitor B/P- on B/P rx seen PCP Patient was on Lexapro 5 mg 12/07 and helped anxiety and depression per patient and daughter educated on Lexapro 5 mg daily educated to stay hydrated discuss how therapy will help with grief, depression anxiety and coping skills she agreed continue therapy uses pill box - daughter helps herrefer to therapy for depression, anxiety, and grief seen PCP B/P and rx options monitor B/P and HR educated to stay hydrated and adequate food intake educated on deep breathing PT and has customer care associate in home SSRI side effects discussed including but not limited to, gastric upset, nausea, vomiting, diarrhea and/or constipation, weight changes, sexual side effects including loss of libido, increased suicidal thoughts/behavior s in children and young adults, and serotonin [...] grief reaction -therapy- schedule 5. Memory issues- short term- [facility] for memory 03/10 unable to complete [facility]UMS 02/05/24 Discussion Notes conitnue rx [facility] for memory 03/10 HX CVA 03/18/2024 Generalized anxiety disorder (ICD-10 - F41.1) Learning About Generalized Anxiety Disorder material was published, Generalized Anxiety Disorder: Care Instructions material was published, Learning About Anxiety Disorders material was published, Generalized Anxiety Disorder: Care Instructions material was published, Learning About Generalized Anxiety Disorder material was published, Learning About Anxiety Disorders material was published 1. Moderate recurrent major depression - Pristiq 50 mg daily - educated on rx - monitor B/P educated to stay hydrated discuss how therapy will help with grief, depression anxiety and coping skills she agreed continue therapy uses pill box - daughter helps herrefer to therapy for depression, anxiety, and grief seen PCP B/P and rx options monitor B/P and HR educated to stay hydrated and adequate food intake educated on deep breathing PT and has customer care associate in home SSRI side effects discussed including but not limited to, gastric upset, nausea, vomiting, diarrhea and/or constipation, weight changes, sexual side effects including loss of libido, increased suicidal thoughts/behavior s in children and young adults, and serotonin syndrome. educated on all medications, benefits, side effects and risk, and educated on depression, anxiety, and mood d/o and educated on compliance of medications, metabolic and movement d/o education appointment's, continue therapy discussion with patient about course of treatmentand patient instructions. education on serotonin syndrome pharmacogenomic panel, discuss 2. Generalized anxiety disorder -Pristiq 50 mg daily Buspar 5 mg twice a day with a meal 3. Fatigue- Ramelteon 8 mg at bedtime 4. Abnormal grief reaction -therapy- schedule 5. Memory issues- short term- [facility] for memory 03/10 unable to complete SLUMS 02/05/24 Discussion Notes lela rx [facility] memory 03/10 HX CVA 03/18/2024 Adjustment disorder, unspecified (ICD-10 - F43.20) Mobility and Fall Risk - Assessment: Patient expresses fear of falling and sometimes sometimes is hesitant to participate in exercises and walking. Patient is able to walk short distances with assistance and a gait belt, but becomes anxious and wants to sit down. Caregivers are encouraging patient to stand up and walk, using a wheelchair behind her for safety. Dehydration - Assessment: Patient is not drinking enough fluids unless reminded. Caregivers are providing Pedialyte occasionally to combat potential dehydration. - Plan: - Consider recommending flavored, low-sugar drinks like Olipop to encourage fluid intake. Social Support and Living Situation - Assessment: Patient has a live-in caregiver, which has been beneficial. Patient is concerned about the long-term viability of staying in her current home. Patient expresses a desire to stay in her home for up to a year if possible. - Plan: - Continue to support patient's desire to remain at home while monitoring safety and ability to function. - Begin discussions about potential future living arrangements and associated financial considerations. Nutrition - Assessment: Patient is eating well with assistance from caregivers. - Plan: - Encourage continued good nutrition and monitor weight. Cognitive Stimulation - Assessment: Patient is using audiobooks for entertainment and cognitive stimulation. - Plan: - Continue to encourage use of audiobooks and other cognitive activities. Holiday Plans - Assessment: Patient expresses a desire to visit family for [place], which can serve as motivation for maintaining mobility. - Plan: - Use upcoming holiday plans as motivation for patient to continue with exercises and mobility efforts. 07/03/2024 Major depressive disorder, recurrent, moderate (ICD-10 - F33.1) Electronic Prior Authorization was requested for Desvenlafaxine ER 50 MG Tablet Extended Release 24 Hour. Provider can order medication once approval received. 07/22/2024 Major depressive disorder, recurrent, moderate (ICD-10 - F33.1) Preventing Depression From Coming Back: Care Instructions [...] published, Learning About Depression material was published 1. depression - Pristiq 50 mg daily - educated on rx - monitor B/P- on B/P rx seen PCP Patient on Lexapro 5 mg 12/07 and helped anxiety and depression per patient and daughter educated on Lexapro 5 mg daily educated [...] educated on deep breathing PT and has customer care associate in home SSRI side effects discussed including but not limited to, gastric upset, nausea, vomiting, diarrhea and/or constipation, weight changes, sexual side effects including loss of libido, increased suicidal thoughts/behavior s in children and young adults, and serotonin [...] grief reaction -therapy- schedule 5. Memory issues- short term- rx Arice[facility] for memory 03/10 unable to complete [facility] 02/05/24 Discussion Notes conitnue rx [facility] for memory 03/10 HX CVA 07/22/2024 Generalized anxiety disorder (ICD-10 - F41.1) Learning [...] monitor B/P- on B/P rx seen PCP Patient on Lexapro 5 mg 12/07 and helped anxiety and depression per patient and daughter educated on Lexapro 5 mg daily educated [...] educated on deep breathing PT and has customer care associate in home SSRI side effects discussed including but not limited to, gastric upset, nausea, vomiting, diarrhea and/or constipation, weight changes, sexual side effects including loss of libido, increased suicidal thoughts/behavior s in children and young adults, and serotonin [...] grief reaction -therapy- schedule 5. Memory issues- short term- rx [facility] for memory 03/10 unable to complete [facility] 02/05/24 Discussion Notes conitnue rx [facility] for memory 03/10 HX CVA 03/18/2024 Other fatigue (ICD-10 - R53.83) Fatigue: Care Instructions material was published, Fatigue: Care Instructions material was published 1. Moderate recurrent major depression - Pristiq 50 mg daily - educated on rx - monitor B/P educated to stay hydrated discuss how therapy will help with grief, depression anxiety and coping skills she agreed continue therapy uses pill box - daughter helps herrefer to therapy for depression, anxiety, and grief seen PCP B/P and rx options monitor B/P and HR educated to stay hydrated and adequate food intake educated on deep breathing PT and has customer care associate in home SSRI side effects discussed including but not limited to, gastric upset, nausea, vomiting, diarrhea and/or constipation, weight changes, sexual side effects including loss of libido, increased suicidal thoughts/behavior s in children and young adults, and serotonin syndrome. educated on all medications, benefits, side effects and risk, and educated on depression, anxiety, and mood d/o and educated on compliance of medications, metabolic and movement d/o education appointment's, continue therapy discussion with patient about course of treatmentand patient instructions. education on serotonin syndrome pharmacogenomic panel, discuss 2. Generalized anxiety disorder -Pristiq 50 mg daily Buspar 5 mg twice a day with a meal 3. Fatigue- Ramelteon 8 mg at bedtime 4. Abnormal grief reaction -therapy- schedule 5. Memory issues- short term- [facility] for memory 03/10 unable to complete [facility] 02/05/24 Discussion Notes conitnue rx [facility] for memory 03/10 HX CVA 07/22/2024 Other fatigue (ICD-10 - R53.83) Fatigue: Care Instructions material was published, Fatigue: Care Instructions material was published 1. depression - Pristiq 50 mg daily - educated on rx - monitor B/P- on B/P rx seen PCP Patient on Lexapro 5 mg 12/07 and helped anxiety and depression per patient and daughter educated on Lexapro 5 mg daily educated [...] educated on deep breathing PT and has customer care associate in home SSRI side effects discussed including but not limited to, gastric upset, nausea, vomiting, diarrhea and/or constipation, weight changes, sexual side effects including loss of libido, increased suicidal thoughts/behavior s in children and young adults, and serotonin [...] grief reaction -therapy- schedule 5. Memory issues- short term- rx [facility] for memory 03/10 unable to complete [facility] 02/05/24 Discussion Notes conitnue rx [facility] for memory 03/10 HX CVA 06/24/2024 Other fatigue (ICD-10 - R53.83) Fatigue: Care Instructions material was published, Fatigue: Care Instructions material was published 1. depression - Pristiq 50 mg daily - educated on rx - monitor B/P- on B/P rx seen PCP Patient was on Lexapro 5 mg 12/07 and helped anxiety and depression per patient and daughter educated on Lexapro 5 mg daily educated to stay hydrated discuss how therapy will help with grief, depression anxiety and coping skills she agreed continue therapy uses pill box - daughter helps herrefer to therapy for depression, anxiety, and grief seen PCP B/P and rx options monitor B/P and HR educated to stay hydrated and adequate food intake educated on deep breathing PT and has customer care associate in home SSRI side effects discussed including but not limited to, gastric upset, nausea, vomiting, diarrhea and/or constipation, weight changes, sexual side effects including loss of libido, increased suicidal thoughts/behavior s in children and young adults, and serotonin [...] grief reaction -therapy- schedule 5. Memory issues- short term- [facility] for memory 03/10 unable to complete [facility] 02/05/24 Discussion Notes conitnue rx [facility] for memory 03/10 HX CVA 10/21/2024 Other fatigue (ICD-10 - R53.83) Fatigue: Care Instructions material was published, Fatigue: Care Instructions material was published 1. depression - Pristiq 50 mg daily - educated on rx - monitor B/P- on B/P rx seen PCP Patient on Lexapro 5 mg 12/07 and helped anxiety and depression per patient and daughter educated on Lexapro 5 mg daily educated [...] educated on deep breathing PT and has customer care associate in home SSRI side effects discussed including but not limited to, gastric upset, nausea, vomiting, diarrhea and/or constipation, weight changes, sexual side effects including loss of libido, increased suicidal thoughts/behavior s in children and young adults, and serotonin [...] -therapy- schedule 5. Memory issues- - rx Exelon patch [facility] for memory 03/10 unable to complete [facility] 02/05/24 Discussion Notes conitnue rx [facility] for memory 03/10 HX CVA 02/07/2025 Memory impairment (ICD-10 - R41.3) 1. depression - Pristiq 50 mg daily - educated on rx - monitor B/P- on B/P rx seen PCP patient having labs done today and fell today at home and daughter may take her to ER also- patient was examined by EMT/[employer] today educated on Lexapro 5 mg daily [...] educated on deep breathing PT and has customer care associate in home SSRI side effects discussed including but not limited to, gastric upset, nausea, vomiting, diarrhea and/or constipation, weight changes, sexual side effects including loss of libido, increased suicidal thoughts/behavior s in children and young adults, and serotonin [...] -therapy- schedule 5. Memory issues- - rx [facility] for memory 03/10 unable to complete [facility] 02/05/24 Discussion Notes conitnue rx [facility] for memory 03/10 HX CVA 10/21/2024 Adjustment disorder, unspecified (ICD-10 - F43.20) Adjustment Disorder: Care Instructions material was published, Adjustment Disorder: Care Instructions material was published 1. depression - Pristiq 50 mg daily - educated on rx - monitor B/P- on B/P rx seen PCP Patient on Lexapro 5 mg 12/07 and helped anxiety and depression per patient and daughter educated on Lexapro 5 mg daily educated [...] educated on deep breathing PT and has customer care associate in home SSRI side effects discussed including but not limited to, gastric upset, nausea, vomiting, diarrhea and/or constipation, weight changes, sexual side effects including loss of libido, increased suicidal thoughts/behavior s in children and young adults, and serotonin [...] -therapy- schedule 5. Memory issues- - rx Exelon patch [facility] for memory 03/10 unable to complete [facility] 02/05/24 Discussion Notes conitnue rx [facility] for memory 03/10 HX CVA 06/24/2024 Adjustment disorder, unspecified (ICD-10 - F43.20) Adjustment Disorder: Care Instructions material was published, Adjustment Disorder: Care Instructions material was published 1. depression - Pristiq 50 mg daily - educated on rx - monitor B/P- on B/P rx seen PCP Patient was on Lexapro 5 mg 12/07 and helped anxiety and depression per patient and daughter educated on Lexapro 5 mg daily educated to stay hydrated discuss how therapy will help with grief, depression anxiety and coping skills she agreed continue therapy uses pill box - daughter helps herrefer to therapy for depression, anxiety, and grief seen PCP B/P and rx options monitor B/P and HR educated to stay hydrated and adequate food intake educated on deep breathing PT and has customer care associate in home SSRI side effects discussed including but not limited to, gastric upset, nausea, vomiting, diarrhea and/or constipation, weight changes, sexual side effects including loss of libido, increased suicidal thoughts/behavior s in children and young adults, and serotonin [...] grief reaction -therapy- schedule 5. Memory issues- short term- [facility] for memory 03/10 unable to complete [facility] 02/05/24 Discussion Notes conitnue rx [facility] for memory 03/10 HX CVA 03/18/2024 Adjustment disorder, unspecified (ICD-10 - F43.20) Adjustment Disorder: Care Instructions material was published, Adjustment Disorder: Care Instructions material was published 1. Moderate recurrent major depression - Pristiq 50 mg daily - educated on rx - monitor B/P educated to stay hydrated discuss how therapy will help with grief, depression anxiety and coping skills she agreed continue therapy uses pill box - daughter helps herrefer to therapy for depression, anxiety, and grief seen PCP B/P and rx options monitor B/P and HR educated to stay hydrated and adequate food intake educated on deep breathing PT and has customer care associate in home SSRI side effects discussed including but not limited to, gastric upset, nausea, vomiting, diarrhea and/or constipation, weight changes, sexual side effects including loss of libido, increased suicidal thoughts/behavior s in children and young adults, and serotonin syndrome. educated on all medications, benefits, side effects and risk, and educated on depression, anxiety, and mood d/o and educated on compliance of medications, metabolic and movement d/o education appointment's, continue therapy discussion with patient about course of treatmentand patient instructions. education on serotonin syndrome pharmacogenomic panel, discuss 2. Generalized anxiety disorder -Pristiq 50 mg daily Buspar 5 mg twice a day with a meal 3. Fatigue- Ramelteon 8 mg at bedtime 4. Abnormal grief reaction -therapy- schedule 5. Memory issues- short term- [facility] for memory 03/10 unable to complete [facility] 02/05/24 Discussion Notes conitnue rx [facility] for memory 03/10 HX CVA 07/22/2024 Adjustment disorder, unspecified (ICD-10 - F43.20) Adjustment Disorder: Care Instructions material was published, Adjustment Disorder: Care Instructions material was published 1. depression - Pristiq 50 mg daily - educated on rx - monitor B/P- on B/P rx seen PCP Patient on Lexapro 5 mg 12/07 and helped anxiety and depression per patient and daughter educated on Lexapro 5 mg daily educated [...] educated on deep breathing PT and has customer care associate in home SSRI side effects discussed including but not limited to, gastric upset, nausea, vomiting, diarrhea and/or constipation, weight changes, sexual side effects including loss of libido, increased suicidal thoughts/behavior s in children and young adults, and serotonin [...] grief reaction -therapy- schedule 5. Memory issues- short term- rx [facility] for memory 03/10 unable to complete [facility] 02/05/24 Discussion Notes conitnue rx [facility] for memory 03/10 HX CVA 07/22/2024 Encounter for screening for cardiovascular disorders (ICD-10 - Z13.6) 1. depression - Pristiq 50 mg daily - educated on rx - monitor B/P- on B/P rx seen PCP Patient on Lexapro 5 mg 12/07 and helped anxiety and depression per patient and daughter educated on Lexapro 5 mg daily educated [...] educated on deep breathing PT and has customer care associate in home SSRI side effects discussed including but not limited to, gastric upset, nausea, vomiting, diarrhea and/or constipation, weight changes, sexual side effects including loss of libido, increased suicidal thoughts/behavior s in children and young adults, and serotonin [...] grief reaction -therapy- schedule 5. Memory issues- short term- rx [facility] for memory 03/10 unable to complete [facility] 02/05/24 Discussion Notes conitnue rx [facility] for memory 03/10 HX CVA 06/24/2024 Encounter for screening for depression (ICD-10 - Z13.31) 1. depression - Pristiq 50 mg daily - educated on rx - monitor B/P- on B/P rx seen PCP Patient was on Lexapro 5 mg 12/07 and helped anxiety and depression per patient and daughter educated on Lexapro 5 mg daily educated to stay hydrated discuss how therapy will help with grief, depression anxiety and coping skills she agreed continue therapy uses pill box - daughter helps herrefer to therapy for depression, anxiety, and grief seen PCP B/P and rx options monitor B/P and HR educated to stay hydrated and adequate food intake educated on deep breathing PT and has customer care associate in home SSRI side effects discussed including but not limited to, gastric upset, nausea, vomiting, diarrhea and/or constipation, weight changes, sexual side effects including loss of libido, increased suicidal thoughts/behavior s in children and young adults, and serotonin [...] grief reaction -therapy- schedule 5. Memory issues- short term- [facility] for memory 03/10 unable to complete [facility] 02/05/24 Discussion Notes conitnue rx [facility] for memory 03/10 HX CVA 10/21/2024 Encounter for screening for cardiovascular disorders (ICD-10 - Z13.6) 1. depression - Pristiq 50 mg daily - educated on rx - monitor B/P- on B/P rx seen PCP Patient on Lexapro 5 mg 12/07 and helped anxiety and depression per patient and daughter educated on Lexapro 5 mg daily educated [...] educated on deep breathing PT and has customer care associate in home SSRI side effects discussed including but not limited to, gastric upset, nausea, vomiting, diarrhea and/or constipation, weight changes, sexual side effects including loss of libido, increased suicidal thoughts/behavior s in children and young adults, and serotonin [...] -therapy- schedule 5. Memory issues- - rx Exelon patch [facility] for memory 03/10 unable to complete [facility] 02/05/24 Discussion Notes conitnue rx [facility] memory 03/10 HX CVA 10/21/2024 Dietary counseling and surveillance (ICD-10 - Z71.3) 1. depression - Pristiq 50 mg daily - educated on rx - monitor B/P- on B/P rx seen PCP Patient on Lexapro 5 mg 12/07 and helped anxiety and depression per patient and daughter educated on Lexapro 5 mg daily educated [...] educated on deep breathing PT and has customer care associate in home SSRI side effects discussed including but not limited to, gastric upset, nausea, vomiting, diarrhea and/or constipation, weight changes, sexual side effects including loss of libido, increased suicidal thoughts/behavior s in children and young adults, and serotonin [...] -therapy- schedule 5. Memory issues- - rx Exelon patch [facility] for memory 03/10 unable to complete [facility] 02/05/24 Discussion Notes conitnue rx [facility] for memory 03/10 HX CVA 07/22/2024 Dietary counseling and surveillance (ICD-10 - Z71.3) 1. depression - Pristiq 50 mg daily - educated on rx - monitor B/P- on B/P rx seen PCP Patient on Lexapro 5 mg 12/07 and helped anxiety and depression per patient and daughter educated on Lexapro 5 mg daily educated [...] educated on deep breathing PT and has customer care associate in home SSRI side effects discussed including but not limited to, gastric upset, nausea, vomiting, diarrhea and/or constipation, weight changes, sexual side effects including loss of libido, increased suicidal thoughts/behavior s in children and young adults, and serotonin [...] grief reaction -therapy- schedule 5. Memory issues- short term- rx [facility] for memory 03/10 unable to complete [facility] 02/05/24 Discussion Notes conitnue rx [facility] for memory 03/10 HX CVA 06/24/2024 Encounter for screening for cardiovascular disorders (ICD-10 - Z13.6) 1. depression - Pristiq 50 mg daily - educated on rx - monitor B/P- on B/P rx seen PCP Patient was on Lexapro 5 mg 12/07 and helped anxiety and depression per patient and daughter educated on Lexapro 5 mg daily educated to stay hydrated discuss how therapy will help with grief, depression anxiety and coping skills she agreed continue therapy uses pill box - daughter helps herrefer to therapy for depression, anxiety, and grief seen PCP B/P and rx options monitor B/P and HR educated to stay hydrated and adequate food intake educated on deep breathing PT and has customer care associate in home SSRI side effects discussed including but not limited to, gastric upset, nausea, vomiting, diarrhea and/or constipation, weight changes, sexual side effects including loss of libido, increased suicidal thoughts/behavior s in children and young adults, and serotonin [...] grief reaction -therapy- schedule 5. Memory issues- short term- [facility] for memory 03/10 unable to complete [facility] 02/05/24 Discussion Notes conitnue rx [facility] for memory 03/10 HX CVA 06/24/2024 Dietary counseling and surveillance (ICD-10 - Z71.3) 1. depression - Pristiq 50 mg daily - educated on rx - monitor B/P- on B/P rx seen PCP Patient was on Lexapro 5 mg 12/07 and helped anxiety and depression per patient and daughter educated on Lexapro 5 mg daily educated to stay hydrated discuss how therapy will help with grief, depression anxiety and coping skills she agreed continue therapy uses pill box - daughter helps herrefer to therapy for depression, anxiety, and grief seen PCP B/P and rx options monitor B/P and HR educated to stay hydrated and adequate food intake educated on deep breathing PT and has customer care associate in home SSRI side effects discussed including but not limited to, gastric upset, nausea, vomiting, diarrhea and/or constipation, weight changes, sexual side effects including loss of libido, increased suicidal thoughts/behavior s in children and young adults, and serotonin [...] grief reaction -therapy- schedule 5. Memory issues- short term- [facility] for memory 03/10 unable to complete [facility] 02/05/24 Discussion Notes conitnue rx [facility] for memory 03/10 HX CVA 07/22/2024 Memory impairment (ICD-10 - R41.3) 1. depression - Pristiq 50 mg daily - educated on rx - monitor B/P- on B/P rx seen PCP Patient on Lexapro 5 mg 12/07 and helped anxiety and depression per patient and daughter educated on Lexapro 5 mg daily educated [...] educated on deep breathing PT and has customer care associate in home SSRI side effects discussed including but not limited to, gastric upset, nausea, vomiting, diarrhea and/or constipation, weight changes, sexual side effects including loss of libido, increased suicidal thoughts/behavior s in children and young adults, and serotonin [...] grief reaction -therapy- schedule 5. Memory issues- short term- rx [facility] for memory 03/10 unable to complete [facility] 02/05/24 Discussion Notes conitnue rx [facility] for memory 03/10 HX CVA 10/21/2024 Memory impairment (ICD-10 - R41.3) 1. depression - Pristiq 50 mg daily - educated on rx - monitor B/P- on B/P rx seen PCP Patient on Lexapro 5 mg 12/07 and helped anxiety and depression per patient and daughter educated on Lexapro 5 mg daily educated [...] educated on deep breathing PT and has customer care associate in home SSRI side effects discussed including but not limited to, gastric upset, nausea, vomiting, diarrhea and/or constipation, weight changes, sexual side effects including loss of libido, increased suicidal thoughts/behavior s in children and young adults, and serotonin [...] -therapy- schedule 5. Memory issues- - rx Exelon patch [facility] for memory 03/10 unable to complete [facility] 02/05/24 Discussion Notes conitnue rx [facility] for memory 03/10 HX CVA 03/18/2024 Other Desvenlafaxine Extended Release Oral Tablet (DESVENLAFAXINE EXTENDED-RELEASE - ORAL) material was published, Ramelteon Oral Tablet (RAMELTEON - ORAL) material was published 1. Moderate recurrent major depression - Pristiq 50 mg daily - educated on rx - monitor B/P educated to stay hydrated discuss how therapy will help with grief, depression anxiety and coping skills she agreed continue therapy uses pill box - daughter helps herrefer to therapy for depression, anxiety, and grief seen PCP B/P and rx options monitor B/P and HR educated to stay hydrated and adequate food intake educated on deep breathing PT and has customer care associate in home SSRI side effects discussed including but not limited to, gastric upset, nausea, vomiting, diarrhea and/or constipation, weight changes, sexual side effects including loss of libido, increased suicidal thoughts/behavior s in children and young adults, and serotonin syndrome. educated on all medications, benefits, side effects and risk, and educated on depression, anxiety, and mood d/o and educated on compliance of medications, metabolic and movement d/o education appointment's, continue therapy discussion with patient about course of treatmentand patient instructions. education on serotonin syndrome pharmacogenomic panel, discuss 2. Generalized anxiety disorder -Pristiq 50 mg daily Buspar 5 mg twice a day with a meal 3. Fatigue- Ramelteon 8 mg at bedtime 4. Abnormal grief reaction -therapy- schedule 5. Memory issues- short term- [facility] for memory 03/10 unable to complete [facility] 02/05/24 Discussion Notes conitnue rx [facility] memory 03/10 HX CVA 10/21/2024 Other Preventing Depression From Coming Back: Care [...] material was published referral to the local [facility] or national office of the Alzheimer[employer] ( ; http://www.alz.o rg), the Alzheimer's Disease Education and Referral Center (ADEAR) ( ; http://www.talisha.[place].gov/Alzheimer s/), 1. depression - Pristiq 50 mg daily - educated on rx - monitor B/P- on B/P rx seen PCP Patient on Lexapro 5 mg 12/07 and helped anxiety and depression per patient and daughter educated on Lexapro 5 mg daily educated [...] educated on deep breathing PT and has customer care associate in home SSRI side effects discussed including but not limited to, gastric upset, nausea, vomiting, diarrhea and/or constipation, weight changes, sexual side effects including loss of libido, increased suicidal thoughts/behavior s in children and young adults, and serotonin [...] -therapy- schedule 5. Memory issues- - rx Exelon patch [facility] for memory 03/10 unable to complete [facility] 02/05/24 Discussion Notes conitnue rx [facility] for memory 03/10 HX CVA 10/21/2024 Other Dementia with Confusion and Fear - Assessment: Nancy reports experiencing confusion about her location and fear when alone at home, which are consistent with symptoms of dementia. She has recently started a new dementia medication in the form of a patch changed every 24 hours, which she reports has been helpful. - Plan: - Continue current dementia medication patch, changed every 24 hours - Daughter to maintain camera monitoring system for remote communication and safety checks - Encourage use of audiobooks during the day for cognitive stimulation and companionship Anxiety Related to Aging and Social Isolation - Assessment: Nancy experiences anxiety related to her confusion, being alone, and concerns about social isolation as she ages. She expressed worry about people not attending her recent 84th birthday constitution party, indicating social anxiety and fear of abandonment. - Plan: - Taught coping strategies for anxiety management: - 5-4-3-2-1 grounding technique using senses - Deep breathing exercises - Encourage continued use of these techniques as needed - Maintain caregiver presence in the home for support and to alleviate fears of being alone 02/07/2025 Other Preventing Depression From Coming Back: [...] office of the Alzheimer's Association ( ; http://www.alz.o rg), the Alzheimer's Disease Education and Referral [facility] (ADEAR) ( ; http://www.talisha.n [place].gov/Alzheimer s/), Adjustment Disorder: Care Instructions material was published, Adjustment Disorder: Care Instructions material was published 1. depression - Pristiq 50 mg daily - educated on rx - monitor B/P- on B/P rx seen PCP patient having labs done today and fell today at home and daughter may take her to ER also- patient was examined by EMT/Senior [employer] Developer today educated on Lexapro 5 mg daily [...] educated on deep breathing PT and has customer care associate in home SSRI side effects discussed including but not limited to, gastric upset, nausea, vomiting, diarrhea and/or constipation, weight changes, sexual side effects including loss of libido, increased suicidal thoughts/behavior s in children and young adults, and serotonin [...] -therapy- schedule 5. Memory issues- - rx [facility] for memory 03/10 unable to complete [facility] 02/05/24 Discussion Notes conitnue rx [facility] for memory 03/10 HX CVA Plan Of Treatment Next Appt Details Provider Name:Shani Ward , 08/08/2025 02:45:00 PM, [address] [facility] [address], [facility] [address], [place], [id number], Insurance Providers Payer Name Payer Address Payer Phone Subscriber Number Group Number Insured Name Patient Relationship to Insured Coverage Start Date Coverage End Date [facility] Medicare Replacement/ Advantage - Ppo [address] [address] [place] [phone] [id number] NANCY BAL Self - patient is the insured Medical (General) History Medical History History ICD Code Problems: Abnormal grief reaction Fatigue Generalized anxiety disorder Moderate recurrent major depression Severe recurrent major depression , cva chronic UTI SHORT TERM MEMORY LOSS Surgical History Surgery Date(Month/Year) Tonsilectomy/adenoids 04/17/1945 Cataract surgery (03518) 04/17/2002 Hysterectomy (06752) 06/15/1992
--- OUTSIDE RECORDS SUMMARY | 2025-02-07 16:03 | XMS_ITS | Clinical Summary ---
Author Organization [facility] Address [address] [place] [address] Care Team Providers [facility] Art Therapist Name Role Phone Shan Snider MD Primary Care Provider [phone] Erasto Vera MD Unavailable [phone] Louie Moreno MD Unavailable [phone] Allergies Active Allergy Reactions Criticality Noted Date Comments Clonidine Hypotension High 05/22/2023 Sulfa Rash Medium 04/19/2023 Sulfacetamide Rash Medium 04/19/2023 Medications metFORMIN XR (GLUCOPHAGE XR) 500 mg 24 hr tablet Take 2 tablets (1,000 mg total) by mouth 2 (two) times a day Active multivitamin tablet Take 1 tablet by mouth daily Active coenzyme Q10 10 mg capsule Take 1 capsule (10 mg total) by mouth daily Active calcium carbonate-blane min D3 1,250mg (500mg elemental) - 5 mcg (200 units) per tablet Take 1 tablet by mouth daily Active ascorbic acid (vitamin C) 1,000 mg tablet Take 1 tablet (1,000 mg total) by mouth daily Active levothyroxine (SYNTHROID) 75 mcg tablet Take 1 tablet (75 mcg total) by mouth daily 12/08/19 23 Active empagliflozin (JARDIANCE) 25 mg tablet Take 1 tablet (25 mg total) by mouth daily 30 tablet 07/13/19 24 Active atorvastatin (LIPITOR) 40 mg tablet Take 1 tablet (40 mg total) by mouth daily 30 tablet 07/13/19 24 Active aspirin 81 mg enteric coated tablet Take 1 tablet (81 mg total) by mouth daily 30 tablet 07/13/19 24 Active acetaminophen (TYLENOL) 325 mg tabletIndicati ons:Fever,Pain Take 2 tablets (650 mg total) by mouth every 4 (four) hours as needed for pain 09/01/19 24 Active emollient cream Apply topically 2 (two) times a day 09/01/19 24 Active miconazole 2 % cream Apply topically 2 (two) times a day 09/01/19 24 Active senna-docusate (PERICOLACE) 8.6-50 mg Take 1 tablet by mouth 2 (two) times a day 09/01/19 24 Active ramelteon (ROZEREM) 8 mg tabletIndicati ons:Sleep-Onse t Insomnia Take 1 tablet (8 mg total) by mouth nightly as needed for sleep 30 tablet 09/04/19 24 Active desvenlafaxine ER 50 mg 24 hr tabletIndicati ons:Generalize d Anxiety Disorder,major depressive disorder Take 1 tablet (50 mg total) by mouth daily 30 tablet 10/30/19 24 Active hydrALAZINE (APRESOLINE) 100 mg tabletIndicati ons:hypertensi on Take 1 tablet (100 mg total) by mouth 3 (three) times a day 90 tablet 10/30/19 24 Active metoprolol tartrate (LOPRESSOR) 75 mg tablet immediate release tablet Take 1 tablet (75 mg total) by mouth 2 (two) times a day 60 tablet 10/30/19 24 Active busPIRone (BUSPAR) 5 mg tablet Take 1 tablet (5 mg total) by mouth 2 (two) times a day Active desvenlafaxine ER 50 mg 24 hr tablet Take 1 tablet (50 mg total) by mouth daily 01/17/20 24 Active calcium carbonate (OS-MANUEL) 1,250 mg (500 mg elemental) tablet Take 1 tablet (1,250 mg total) by mouth 11/02/19 24 Active galantamine ER (RAZADYNE ER) 8 mg 24 hr capsule TAKE 1 CAPSULE(8 MG) BY MOUTH DAILY WITH BREAKFAST 90 capsule 3 01/24/20 25 Active galantamine ER (RAZADYNE ER) 8 mg 24 hr capsule Take 1 capsule (8 mg total) by mouth daily with breakfast 30 capsule 2 12/25/19 25 025 Discontinued Active Problems Problem Noted Date Diagnosed Date Neuropathy 10/05/2023 Assessment & Plan (10/05/2023 6:45 PM CDT): To feet. Fluctuates. Will discuss gabapentin with patient & dtr as they are cautious with starting meds. Continue compression at this time. Debility 09/21/2023 Assessment & Plan (10/17/2023 12:09 PM CDT): Patient reports increased weakness today. Tx had to use ez-stander this am. Will check labs. BP has been increasingly high also. Anxiety 09/19/2023 Assessment & Plan (09/19/2023 11:55 AM CDT): Fear of falling Severe malnutrition 08/17/2023 Assessment & Plan (10/05/2023 6:42 PM CDT): Diet has improved. Continue to monitor. Assessment & Plan (08/22/2023 2:20 PM CDT): Gastric outlet obstruction noted on CT was ruled out with upper GI series. Currently on nocturnal tube feeds. Undergoing calorie assessment with nutrition to determine if she is meeting p.o. needs. If not, will need to discuss possibility of PEG tube Moderate vascular dementia w ithout behavioral disturbance, psychotic disturbance, mood disturbance, or anxiety 08/03/2023 Assessment & Plan (10/30/2023 1:43 PM CDT): Continues at baseline. Assessment & Plan (10/23/2023 11:02 AM CDT): Have asked SENIOR ECOLOGIST to fu with patient to evaluate cognition and if at baseline or worsen. Assessment & Plan (09/05/2023 3:12 PM CDT): Improved, ST consult Assessment & Plan (08/13/2023 10:45 AM CDT): Patient presenting with subacute history of waxing/waning mental status and confusion with intermittent difficulty with swallow dysfunction. Most notable after CVA and developed during IPR stay but has continued after discharge to home. No focal neurologic findings on examination and CT head, and per neurology evaluation in ED, no acute process, overall etiology concerning for toxic-metabolic encephalopathy - HIV, B12, RPR, TSH unremarkable - Delirium Precautions - worsened mental status 08/08, code stroke called in IR 08/09, negative CT head - PT/OT rec SNF; case management working w/ family to send referrals Assessment & Plan (08/22/2023 2:23 PM CDT): RESOLVED - Patient presented with subacute history of waxing/waning mental status and confusion with intermittent difficulty with swallow dysfunction since her CVA in 05/2023. - Evaluation on arrival with CT-Head with evolving prior CVA, HIV/RPR, B12, TSH unremarkable. - Presume related to underlying infection (UTI, acute cholecystitis), management per above - Home meclizine and duloxetine on hold at this time - Cont delirium precautions and PT/OT eval (SNF recommended at this time) - She has improved to where she is conversational, oriented and coherent - Drowsiness waxes and wanes and on 08/19 may have been more persistent. Head CT normal. Lactic acid normal. Concern to be due to infection. Blood culture and urine culture NGTD. Started Vanc/marcelino, cx negative, abx stopped 08/21 HFrEF (heart failure with reduced ejection fract ion) 06/01/2023 Assessment & Plan (10/30/2023 1:42 PM CDT): Has improved greatly. Continue Cardiology management outpt. Assessment & Plan (10/10/2023 11:09 AM CDT): Compensated. Does have Cardiology appt . Assessment & Plan (10/05/2023 6:42 PM CDT): Remains compensated. Reminded nursing to continue to use compression wraps daily. Assessment & Plan (09/15/2023 11:14 AM CDT): Edema to BLE but does not appear increased. Will add on Compression wraps & montior. Assessment & Plan (09/12/2023 11:57 AM CDT): Compensated. Assessment & Plan (09/07/2023 12:11 PM CDT): Patient follows with outside contracts officer who recently increased entresto from 49-51 mg BID --> 97-103 mg BID and who started patient on digoxin 125 mcg for inotropic support (due to HFrEF with EF 15-20%). Repeat TTE here (08/04): LVEF 55-60%, mod prox septum hypertrophy wo LVOT obstruction, aortic sclerosis, G1DD, very reduced image quality. During hospitalization Dig dc d/t elevated levels & STAR. Entresto & Spirolactone unable to be tolerated per patient dt Hyperk & soft BP. She will need fu with PCP. Assessment & Plan (09/05/2023 3:12 PM CDT): Chronic, but stable; cont rx asa, lipitor, empagliflozin, metoprolol Assessment & Plan (08/12/2023 11:56 AM CDT): -previous diagnosis of HFrEF with LVEF 15-20%, initiated on GDMT (spironolactone 25, metoprolol XL 100 mg BID, empagliflozin 25, entresto 49-51 BID) -followed by contracts officer, Dr. Bethea who initiated digoxin 125 mcg and increased entresto to 97-103 BID -digoxin level elevated on admission; stopped digoxin. -holding empagliflozin, entresto, spironolactone given shock -repeat TTE (08/04): LVEF 55-60%, mod prox septum hypertrophy wo LVOT obstruction, aortic sclerosis, G1DD, very reduced image quality Assessment & Plan (08/22/2023 2:22 PM CDT): Found to have HFrEF with EF 15-20% during admission for acute CVA (05/2023). Patient initiated on GDMT which she was able to tolerate: spironolactone 25, metoprolol XL 100 mg BID, empagliflozin 25, entresto 49-51 BID. - Followed by contracts officer, Dr. Bethea who initiated digoxin 125 mcg and increased entresto to 97-103 BID - Digoxin stopped on admission due to elevated level - Home empagliflozin & spironolactone have been on hold in setting of STAR/hyperkalemia. Entresto restarted 08/13, but stopped with persistent hyperkalemia - TTE performed here 08/04 with HFrecEF to 55-60% - Outpatient cardiology appointment - Continue strict I/O, daily weights Assessment & Plan (07/13/2023 4:09 PM CDT): Chronic, EF 15-20%; CV did not order a Life Vest due to her recent CVA. Patient had appt with Dr. Bethea Cardiology . Started on Dig 0.125mg daily, Entresto increased to 97-103 BID. Metoprolol continued. Lifevest was discussed but declined. Repeat echo planned for 6wks and if EF remains below 35% proceed with ICD. Assessment & Plan (07/04/2023 8:38 AM CDT): Compensated. Currently in 2nd level appeal with insurance. Assessment & Plan (06/16/2023 10:53 AM REFINERY OPERATOR): Patient had appt with Dr. Bethea Cardiology . Started on Dig 0.125mg daily, Entresto increased to 97-103 BID. Metoprolol continued. Lifevest was discussed but declined. Repeat echo planned for 6wks and if EF remains below 35% proceed with ICD. Monitor potassium & cr with Entreso & Spirolactone. BP stable today. Assessment & Plan (06/13/2023 12:16 PM REFINERY OPERATOR): Compensated. Continue to monitor. Assessment & Plan (06/05/2023 12:28 PM REFINERY OPERATOR): Has increased edema to BLE. Will add compression wraps. Monitor. Assessment & Plan (06/02/2023 11:17 AM REFINERY OPERATOR): Continue Entresto, Spirolactone, Jardiance, Lipitor, ASA. Outpt Cardiology fu. Assessment & Plan (06/01/2023 3:16 PM REFINERY OPERATOR): Chronic, EF 15-20%; CV did not order a Life Vest due to her recent CVA. She is to see CV post SNF discharge for continued management of CHF and for discussion of ICD. Cont rx entresto, aldactone, empagliflozin, and metoprolol I did discuss prognosis of a patient w EF 15% w daughter Rafael. She endorses understanding that this can lead to severe sx's of chf and/or sudden in the next 12mo. Hypothyroidism, unspecified 06/01/2023 Assessment & Plan (09/05/2023 3:09 PM CDT): Chronic, stable; cont rx synthroid 75mcg/day Assessment & Plan (08/11/2023 9:33 AM CDT): -synthroid 75 mcg Assessment & Plan (08/14/2023 4:05 PM CDT): - Continue synthroid 75mcg Assessment & Plan (06/01/2023 3:18 PM REFINERY OPERATOR): Chronic, stable; cont rx levothyroxine 75mcg/day Gastroesophageal reflux disease 06/01/2023 Assessment & Plan (06/01/2023 3:19 PM REFINERY OPERATOR): Chronic, stable; cont rx protonix Fall 06/01/2023 Assessment & Plan (06/01/2023 3:21 PM REFINERY OPERATOR): Rafael reports that she has become increasingly weak and she has been falling more since Dec. Cerebrovascular accident (CVA) 05/23/2023 Assessment & Plan (09/21/2023 1:26 PM CDT): DCP in place per insurance. If goes home will require WC & Lift. Pt would benefit from a wheelchair as a primary mode of transportation related to non - ambulatory or limited ability to walk. Pt has been instructed on safety and operation of a wheelchair with good comprehension. Pt will be able to have room in the home for wheel chair accessibility. The patient would not be able to complete the activities of daily living without the use of the wheel chair including but not limited mobility, toileting, bathing, etc. The use of walker or cane would not be sufficient or safe for use by the resident to complete their activities daily living more independently. The patient has safely been able the use of the wheel chair and demonstrate. Patient will need wheelchair with leg rests due to diagnosis of CVA with debility & CHF when he/she returns home. F2F performed on this date. Patient will not be able to perform daily ADLs such as mobility, toileting bathing, etc. without this wheelchair. Walker or cane will not suffice for his/her mobility. Patients home is wheelchair accessible. Patient is able to propel self in this wheelchair or that caregiver will be present to assist with wheelchair mobility. This will be a life-long need. Lift is needed for transfer between bed and a chair, wheelchair, or commode is required; and without the use of a lift, the beneficiary would be bed confined. Assessment & Plan (09/07/2023 12:10 PM CDT): Neuro signed off and will arrange outpatient f/up (chronic vascular dementia possibly contributing, may benefit from future brain MRI). Assessment & Plan (09/05/2023 3:12 PM CDT): In May, stable; Assessment & Plan (08/11/2023 9:31 AM CDT): -history of left basal ganglia lacunar CVA diagnosed in 05/2023 with residual right sided weakness. -CT Head shows stable left basal ganglia lacunar infarct without evidence of acute intracranial hemorrhage, large acute territory infarct, herniation or hydrocephalus. -continue atorvastatin and aspirin Assessment & Plan (08/17/2023 12:00 PM CDT): - Prior L basal ganglia lacunar CVA 05/2023 with residual R-side weakness; no reported evidence of arrhythmias, carotid stenosis on ultrasound evaluation. - CT Head shows stable left basal ganglia lacunar infarct without evidence of acute intracranial hemorrhage, large acute territory infarct, herniation or hydrocephalus. - Continue atorvastatin, aspirin - Continue rehab Assessment & Plan (06/02/2023 11:16 AM REFINERY OPERATOR): Continue PT/OT/ST, ASA, Lipitor. Assessment & Plan (06/01/2023 3:17 PM REFINERY OPERATOR): Subacute. She reports that she has weakness R Leg and the dysarthria. Cont asa 81mg/ lipitor; I endorse admission to snf care. The patient is at risk of injury, illness and a requirement for a higher level of care without this service. The patient needs assistance from the nurses and care team for all activities of daily living including dressing, hygeine of person and toilet, safe transfer and mobility, dietary needs, medication administration, and grooming. The patient will need physical and occupational therapy to progress to a safer level of care. Discussed care plan meri Hall. Dysarthria 05/22/2023 Assessment & Plan (06/01/2023 3:16 PM REFINERY OPERATOR): ST consult Exertional dyspnea 01/20/2023 Obesity (BMI 30.0-34.9) 01/20/2023 Hypertension 12/07/2022 Assessment & Plan (10/30/2023 1:41 PM CDT): BP elevated still. Believe s/t Pristiq, underlying CHF. Continues hydralazine 100mg TID, Lopressor BID. Will need close monitoring. Assessment & Plan (10/27/2023 12:49 PM CDT): BP remains elevated. Increase Hydralazine to 100mg TID. Monitor. Assessment & Plan (10/23/2023 10:59 AM CDT): BP improved. Mildly elevated at med times. Continue Hydralazine & Metoprolol. Monitor closely for need to review. Assessment & Plan (10/17/2023 12:17 PM CDT): BP high this am. Metoprolol increased 10/15 to 50mg BID. BP elevation could be s/t Pristiq. She is reporting increased weakness also. Will add Hydralazine 50mg TID. Monitor closely. Have asked for nursing to recheck. Assessment & Plan (10/11/2023 4:02 PM CDT): Chronic, stable; cont rx metoprolol Assessment & Plan (09/15/2023 11:15 AM CDT): BP & pulse elevated. Will increase Metoprolol to 37.5mg BID & monitor. Assessment & Plan (09/12/2023 11:57 AM CDT): BP fluctuating. Continue Metoprolol. Monitor need for adjustment & fu with Cardiology. Assessment & Plan (09/05/2023 3:08 PM CDT): Chronic, stable; cont rx metoprolol Assessment & Plan (08/10/2023 8:25 PM CDT): -holding spironolactone, metoprolol, empagliflozin, entresto in setting of hypotension and STAR Assessment & Plan (08/21/2023 12:35 PM CDT): - Home metoprolol/spironolactone has been on hold - entresto restarted 08/13, held again with rising K Assessment & Plan (06/20/2023 10:57 AM REFINERY OPERATOR): BP elevated. Will allow elevation with age. Followed by cardiology. Continue to monitor. CHF compensated with Entresto, Spirolactone, Metoprolol, Dig. Will order Dig level with next labs. Assessment & Plan (06/05/2023 12:21 PM REFINERY OPERATOR): Fluctuates. Continues on Spirolactone, Entresto, Metoprolol. Monitor for need to adjust. Assessment & Plan (06/02/2023 11:17 AM REFINERY OPERATOR): Flucutating. Monitor. Assessment & Plan (06/01/2023 3:12 PM REFINERY OPERATOR): Chronic, stable; cont rx metoprolol, valsartan Type 2 diabetes mellitus wit h hyperglycemia, without long-term current use of insulin 12/07/2022 Assessment & Plan (10/11/2023 4:03 PM CDT): Chronic, stable; cont rx metformin. Cont rx empagliflozin Assessment & Plan (09/07/2023 12:14 PM CDT): Hga1c 8.4%. Continue Metformin + Jardiance. Monitor BS. Assessment & Plan (09/05/2023 3:09 PM CDT): Chronic, stable; cont rx metformin Assessment & Plan (08/13/2023 10:34 AM CDT): -home regimen includes metformin and empagliflozin. -continues on lantus 6U (reduced from 10 units 08/12) and SSI q4h Assessment & Plan (08/18/2023 8:27 AM CDT): - Not on insulin therapy - Hgb A1C 8.4% in 05/2023; on metformin, empagliflozin at home - Holding oral DM meds - Cont Lantus 3U switch to daily, add NPH 10 units with nocturnal TF, continue with SSI - Accuchecks 5 times daily Assessment & Plan (07/13/2023 1:56 PM CDT): A1c 8.4%. Cardiology would like A1c to be below 7, Continue Merformin + Jardiance. [place] [facility] [place] would like to avoid. Monitor outpt. Assessment & Plan (06/26/2023 3:54 PM CDT): Stable; cont rx insulin glargine Assessment & Plan (06/20/2023 10:58 AM REFINERY OPERATOR): BS 160-280. Increase Lantus to 8u. Monitor. Assessment & Plan (06/16/2023 10:53 AM REFINERY OPERATOR): Cardiology would like A1c to be below 7, Continue Merformin + Jardiance. BS remain elevated. Will start Lantus 5u nightly & monitor. Would like to avoid SSI. Assessment & Plan (06/13/2023 12:05 PM REFINERY OPERATOR): A1c 8.4%. BS 178-300. Currently on Metformin 500mg BID -- increase to 1000mg BID. Montior. Continue daily BS. Assessment & Plan (06/05/2023 12:25 PM REFINERY OPERATOR): BS 204, will add daily BS checks. Check Hga1. Continue Metformin 500mg BID. Assessment & Plan (06/01/2023 3:15 PM REFINERY OPERATOR): Follow up lab ordered. Cont rx metformin Depression 12/07/2022 Assessment & Plan (10/30/2023 1:42 PM CDT): Great improvement with Pritsiq. Will need fu with manager retail store she sees in community. Assessment & Plan (10/27/2023 1:07 PM CDT): Depression/Anxiety remains improved. Assessment & Plan (10/23/2023 11:02 AM CDT): Mood remains improved. Continue Pristiq. Assessment & Plan (10/17/2023 12:11 PM CDT): Continues on Pristiq. Is having elevated BP which is s/e of medication. Will need to monitor closely & if remains elevated may need to find alternative. Assessment & Plan (10/10/2023 11:09 AM CDT): Have talked to Dtr. Patient continues to flat affect. Will dc Cymbalta & start Pristiq. Dtr agreeable to POC. Assessment & Plan (10/05/2023 6:44 PM CDT): Have not heard back from manager retail store. Her mood continues to be improved however. Continue to monitor. Assessment & Plan (09/19/2023 11:55 AM CDT): Genotesting received. She would be a good patient to start Buspar, Vraylar or Viibryd. Due to cost & increase anxiety currently would like to start Buspar. She is seen by Shani Ward psychological assistant on routine basis. Prev on 90mg Cymbalta & did trial Abilify but caused nausea. Have called & left message for Shani about switching to Buspar. Will wait for return call. Assessment & Plan (09/15/2023 11:16 AM CDT): Remains flat. Cymbalta restarted 1 wk. Will continue to monitor - consider increasing next week. Believe situational. Assessment & Plan (09/12/2023 12:00 PM CDT): Cymbalta dc inpt. Dtr requested to start something. Dr. Weller discussed with Psych & recommended restarting Cymbalta at lower dose. Restarted Monday at 30mg. Monitor. Assessment & Plan (06/26/2023 3:53 PM CDT): She had been on a GDR due to concern for her GFR. Most recent GFR 58; Daughter doesn't want her to be reduced further and in fact would like to increase the duloxetine from 40mg/d to 30mg bid (done). I have ordered repeat BMP for Monday Assessment & Plan (06/13/2023 12:13 PM REFINERY OPERATOR): Currently on cymbalta - pharmacy reporting GDR with CrCl 23. Recommend Cymbalta 40mg qhs x2wk, then 20mg x2 wks, then dc. Recommend starting Lexapro if needs alt tx. Have ordered GDR in cymbalta. Assessment & Plan (06/01/2023 3:20 PM REFINERY OPERATOR): Chronic, stable; cont rx duloxetine Resolved Problems Problem Noted Date Diagnosed Date Resolved Date Acute cystitis without hematuria 10/10/2023 10/23/2023 Assessment & Plan (10/23/2023 11:01 AM CDT): Completed abx. No reoccurrence of sx present. Have educated dtr that we do not retest unless sx present. She does have concerns r/t increased confusion. Educated likely s/t decline/hospital admissions & no s/s of UTI at this time. Assessment & Plan (10/17/2023 12:08 PM CDT): Urine CX reviewed + Kliebsiella. Complete Macrobid 100mg po bid x 7d as ordered. Assessment & Plan (10/11/2023 4:01 PM CDT): Urine CX reviewed + Kliebsiella. Sens pending. Macrobid 100mg po id x 7d ordered and patient in agreement. Assessment & Plan (10/10/2023 11:07 AM CDT): UCx >100,000 Proteus. Will wait for C&S to start abx. Anemia 08/22/2023 10/30/2023 Assessment & Plan (08/22/2023 2:26 PM CDT): Hemoglobin 6.9 from 13 on admission. No evidence of active bleeding. Normocytic. Reticulocyte count elevated, previous iron studies with mixed iron-deficiency pattern. Unclear etiology of anemia. -check LDH, haptoglobin -maintain active type and screen -transfuse for hemoglobin less than 7, consented Swelling of right upper extremity 08/21/2023 09/07/2023 Assessment & Plan (08/22/2023 2:19 PM CDT): Has PICC placed 5/2 with increasing non painful swelling, right upper extremity ultrasound without acute DVT. Plan for conservative management with elevation Hyperkalemia 08/19/2023 09/07/2023 Assessment & Plan (09/07/2023 12:15 PM CDT): Resolved inpt. Deemed to be r/t Entersto/Spirolactone. Assessment & Plan (08/20/2023 4:02 PM CDT): K 5.1 08/18. Concern to be due to entresto. - Hold entresto Hypernatremia 08/12/2023 08/17/2023 Assessment & Plan (08/16/2023 12:04 PM CDT): - Peak Na 148, improving, monitor Assessment & Plan (08/13/2023 10:45 AM CDT): Due to poor PO intake, currently NPO -BMP Q12H -D5 as indicated. -free water vs PO intake depending on swallow eval Gastric outlet obstruction 08/11/2023 0 08/17/2023 Assessment & Plan (08/17/2023 12:05 PM CDT): - Noted on CT A/P for evaluation of leukocytosis workup - NG clamped between feeds - GI reconsulted 08/14: recommended UGI series which is unremarkable and no e/o obstruction - Advance diet as tolerated - Bowel regimen - had medium (3) to large (4) BMS between 08/15-08/16 - Resolved Assessment & Plan (08/13/2023 10:46 AM CDT): - NPO - KUB 08/11 without ileus or e/o obstruction - ACCS following -bedside swallow, tube feeds vs CLD Acute cholecystitis 08/10/2023 10/05/19 Assessment & Plan (10/05/2023 6:42 PM CDT): Resolved. Drainage tube removed 09/28. Assessment & Plan (09/15/2023 11:16 AM CDT): IR fu 09/27. Keep for drain removal. Denies any acute pain. Assessment & Plan (09/12/2023 11:58 AM CDT): No drainage to drain, keep IR fu. Assessment & Plan (09/07/2023 12:16 PM CDT): Sp perc-jamilah drain placement placed by IR. Will need to fu with IR for removal & fu with gen surgrery for evaluation of cholecystectomy. IR appt scheduled for 09/27. Assessment & Plan (09/05/2023 3:13 PM CDT): Subacute, resolved; monitor follow up lab. Assessment & Plan (08/22/2023 2:24 PM CDT): - Noted on CT, IR place biliary drain 08/10. Flush 10cc BID with drain maintained to gravity Assessment & Plan (08/13/2023 10:35 AM CDT): -- CT A/P with pericholecystic fluid and stone in cystic duct. Elevated WBC. -- ACCS and IR consulted. Jamilah tube placed by IR 08/10 -- Antibiotics and volume resuscitation per Severe Sepsis. -drain placed by IR 08/10. NSTEMI (non-ST elevated myoc ardial infarction) 08/10/2023 08/11/2023 Assessment & Plan (08/10/2023 9:18 PM CDT): Troponin elevated 43-->58 in setting of septic shock. -- EKG with change in T wave inversion, no acute ST changes. -- Trend troponin q6h to peak Hyperkalemia 08/09/2023 08/11/2023 Assessment & Plan (08/10/2023 8:25 PM CDT): On admission mildly hyperkalemic at 5.2 in setting of digoxin toxicity but resolved by 08/03. Digoxin stopped. Likely elevated in setting of STAR. -- Trend daily Assessment & Plan (08/09/2023 4:49 PM CDT): On admission mildly hyperkalemic at 5.2 in setting of digoxin toxicity but resolved by 08/03. Digoxin stopped. - K levels remained high-normal for much of first week of admission. High again at 5.3 on 08/06 and 08/07. Lokelma given. Will CTM. STAR (acute kidney injury) 08/03/2023 Assessment & Plan (09/05/2023 3:10 PM CDT): Resolved, follow up lab ordered. Assessment & Plan (08/13/2023 10:38 AM CDT): -likely ATN in the setting of worsening septic shock -s/p fluid resuscitation with improvement in Cr ,1.27 this AM -avoid nephrotoxins -renally dose medications as appropriate Assessment & Plan (08/22/2023 2:22 PM CDT): RESOLVED - Initially presented after fall with mild STAR 1.30 that improved with gentle fluids, with return rise of Cr in setting of septic shock per above to peak of 1.99 - Cr improved in interim with abx, fluids, and pressors in the ICU, so far continues to improve - Avoid nephrotoxins, renal-dose meds Elevated digoxin level 08/03/202308/02 Assessment & Plan (08/03/2023 5:30 PM CDT): Patient initiated on digoxin therapy by outside contracts officer for inotropic support in [facility]. Was taking regularly though did not take this AM. Digoxin level in ED 1.4. -holding digoxin -can repeat digoxin level with AM labs to monitor clearance Urinary tract infection 08/03/202307/17 Assessment & Plan (08/09/2023 4:46 PM CDT): Some concern for frequent UTI with dysuria. Workup in ED notable for no leukocytosis (WBC 9.9) though elevated Cr and UA with >50 WBC, 1+ bacteria, 3+ LE. On admission, patient denies flank pain or dysuria (though she had altered mental status). Afebrile. - She was started on cipro --> CTX and was treated for 3 days before urine culture resulted as ESBL E coli (R - cipro, ceftriaxone, others). Given low CrCl and documented sulfa allergy, gave fosfomycin 3g x1. - Afebrile throughout admission - Miconazole cream for persistent vaginal itchiness. - Endorsed polyuria and dysuria 08/06 (says she forgot to mention it to providers over the weekend). - On 08/06, Nurse noticed yellow vaginal discharge; Gonorrhea + Chlamydia + Trach test unremarkable; Vaginosis stain grew yeast. One dose oral fluconazole given. - Worsening confusion on 08/08; Repeat UA positive and UC pending. Started meropenem. Fall, initial encounter 08/02/2023 06/0 07/2023 Assessment & Plan (08/04/2023 4:02 PM CDT): Patient with fall from bed to floor which was unwitnessed. Has caregiver and family living with her, and no reported shaking spells or episodes of loss of consciousness. No pain reported and no abnormalities on exam. -CT head without acute intracranial process -PT/OT consulted; recommends SNF -no clinical symptoms suggesting seizure or repeat syncopal episodes, Neuro signed off. Conjunctivitis of left eye 06/21/2023 0 07/03/2023 Assessment & Plan (06/21/2023 12:02 PM REFINERY OPERATOR): Acute but stable; ordered tobramycin opth 0.3% qid x 5 days L eye Pneumonia due to infectious organism 06/01/2023 06/13/2023 Assessment & Plan (06/05/2023 12:26 PM REFINERY OPERATOR): Continue Mucinex, respiratory sounds improved, CTA without rhonci. WBC trending down. Continue to monitor. Assessment & Plan (06/02/2023 11:16 AM REFINERY OPERATOR): Completed abx in hospital, continues to remain congested with rhonci. VSS, afebrile. No recent labs. Will add Mucinex 1200mg BID. Monitor, pending labs may consider XR if worsens. Assessment & Plan (06/01/2023 3:17 PM REFINERY OPERATOR): This was treated in hosp; monitor for s/s of new pulm infection. Recurrent major depressive d isorder, in remission 06/01/2023 06/01/2023 Pneumonia due to COVID-19 virus 12/07/2022 06/01/2023 Acute hypoxemic respiratory failure 12/07/2022 09/07/2023 Assessment & Plan (09/05/2023 3:11 PM CDT): Resolved, monitor for recurrence Assessment & Plan (08/21/2023 12:34 PM CDT): - Patient developed aspiration event on 08/09 in setting of progressive somnolence requiring 15L NRB initially to maintain saturations, wean to NC on transfer to floor - Maintain PEP, aspiration precautions - Weaned to RA - CXR on 08/19 no new consolidation or pneumonia Assessment & Plan (08/12/2023 11:55 AM CDT): -episode of aspiration in IR during attempted procedure -presenting on 15L NRB, now weaned to 2L NC -continue to wean O2 as tolerated for SpO2 > 92%. -encourage OOBTC and pulmonary hygiene Septic shock 12/07/2022 09/07/2023 Assessment & Plan (09/05/2023 3:11 PM CDT): Resolved. Monitor vs and follow up lab. Assessment & Plan (08/13/2023 2:54 PM CDT): -in the setting of acute cholecystitis, aspiration pneumonia also contributing -previously E. Coli UTI s/p course of antibiotics -CT with gallbladder with pericholecystic fluid and stone in cystic duct. Also with distended stomach and possible gastric outlet obstruction. Jamilah drain placed by IR 08/11 -currently off levophed since ~1800 on 08/11. -Abx: meropenum (08/08-), EOT 08/14. S/p vancomycin, jaime Assessment & Plan (08/22/2023 2:21 PM CDT): Patient initially presented after falling with ESBL E coli UTI. During admission she developed progressive leukocytosis with abdominal pain and increasing somnolence. Evaluation with CT A/P with acute cholecystitis and while in IR suite she had an aspiration episode with acute decompensation/hypoxia with hypotension requiring pressors x 48hrs. She was initially placed on Vanc/Marcelino, though ultimately maintained on meropenem to complete a 7d course to cover UTI/Cholecystitis (ends 08/14), now s/p IR perc-jamilah drain placement on 08/10 by IR - Given AMS and somewhat increase WBC and biliary drain in place, resumed Vanc/Marcelino 08/19 -> infectious work up negative. Abx dc 08/21 Elevated troponin I level 12/07/2022 Encounters Date Type Department Care Team Description 12/23/2024 Telephone [facility] Diagnostic [address] [place] [address] Jenny Castellano, RMA Medication Request 12/20/[address] [place] [address] Gavi Richardson RN 11/07/[address] [place] [address] Kinjal Mercado, CHAVA from Last 3 Months Immunizations Immunization Administration Dates Next Due Tdap 04/20/2023 Surgical History Surgery Date Site/Laterality Comments HYSTERECTOMY CENTRAL LINE PLACEMENT > 5 YEARS 08/10/2023 N/A GALLBLADDER DRAINAGE 08/11/2023 N/A IR CHOLANGIOGRAM THROUGH EXISTING CATHETER 09/28/2023 N/A Medical History Medical History Date Comments Depression Hypertension Diabetes mellitus Chronic systolic congestive heart failure (HCC) 06/01/2023 Other specified hypothyroidism 06/01/2023 Recurrent major depressive disorder, in remissio n 06/01/2023 Social History Tobacco Use Types Packs/Day Years Used Date Smoking Tobacco: Never Smokeless Tobacco: Never Tobacco Cessation:Counseling Given: No [facility] Utilities Answer Date Recorded In the past 12 months has HAUL, gas, oil, or water [employer] threatened to shut off services in your home? No 08/11/2023 Social Connection and Isolation Panel Answer Date Recorded In a typical week, how many times do you talk on the phone with family, friends, or neighbors? More than three times a week 08/11/2023 How often do you get togethe r with friends or relatives? More than three times a week 08/11/2023 How often do you attend [facility] or oriental orthodox services? 1 to 4 times per year 08/11/2023 Do you belong to any clubs o r organizations such as methodist groups, unions, fraternal or athletic groups, or school groups? No 08/11/2023 How often do you attend meet ings of the clubs or organizations you belong to? Never 08/11/2023 Are you , , di vorced, , never , or living with a partner? 08/11/2023 AUDIT-C Answer Date Recorded Q1: How often do you have a drink containing alcohol? Never 09/28/2023 Q2: How many drinks containi ng alcohol do you have on a typical day when you are drinking? Patient does not drink Q3: How often do you have si x or more drinks on one occasion? Never 09/28/2023 Overall Financial Resource Strain (CARDIA) Answe r Date Recorded How hard is it for you to pa y for the very basics like food, housing, medical care, and heating? Not hard at all 08/11/2023 Hunger Vital Sign Answer Date Recorded Within the past 12 months, y ou worried that your food would run out before you got the money to buy more. Never true 09/28/19 24 Within the past 12 months, t he food you bought just didn't last and you didn't have money to get more. Never true 09/28/2023 PRAPARE - Transportation Answer Date Re corded In the past 12 months, has l ack of transportation kept you from medical appointments or from getting medications? No 07/17 In the past 12 months, has l ack of transportation kept you from meetings, work, or from getting things needed for daily living? No 08/11/2023 Housing Stability Vital Sign Answer Charlie e Recorded In the last 12 months, was t here a time when you were not able to pay the mortgage or rent on time? No 08/11/2023 In the last 12 months, how many places have you lived? 1 08/11/2023 In the last 12 months, was t here a time when you did not have a steady place to sleep or slept in a fdc (including now)? No 08/11/2023 Personal Safety Answer Date Recorded Have you ever been in or are you currently in a harmful physical or emotional relationship or is someone making you feel afraid or unsafe? Denies 12/12/2023 Comments No Sex and Gender Information Value Date Recorded Sex Assigned at Not on file Legal Sex Female 11:18 AM REFINERY OPERATOR Gender Identity Female 12/07/2022 1:47 PM CDT Sexual Orientation Not on file Obstetrics History Last Filed Vital Signs Vital Sign Reading Time Taken Comments Blood Pressure 170/74 09/04/2024 4:12 PM CDT Pulse 72 09/04/2024 4:12 PM CDT Temperature 36.4 C (97.6 F) 12/12/2023 4:35 PM CDT Respiratory Rate 16 12/12/2023 6:24 PM CDT Oxygen Saturation 95% 12/13/2023 3:00 AM CDT Inhaled Oxygen Concentration - - Weight 74.8 kg (165 lb) 12/12/2023 2:30 PM CDT Height 160 cm (5' 3) 09/04/2024 4:12 PM CDT Body Mass Index 29.23 12/12/2023 2:30 PM CDT Plan of Treatment Health Maintenance Due Date Last Done Comments Albumin Creatinine Ratio, Urine 1940 Depression Screening 1940 Osteoporosis Screening-Bone Density Scan 1940 Dilated Eye Exam 1940 Foot Exam 1940 Hepatitis B Screening 1958 Pneumococcal vaccine 65+ (1 of 2 - PCV) 10/07/1959 Zoster Vaccine (1 of 2) 1990 Well Visit 65+ 2005 Hemoglobin A1C 02/14/2024 08/15/2023, 04, 06/12/2023, Additional history exists Lipid Panel 05/23/2024 05/23/2023, 12/07/2022 Fall Risk Assessment 08/31/2024 09/01/2023 eGFR 12/11/2024 12/12/2023, 07/0 12/2023, 10/17/2023, Additional history exists Covid-19 Vaccine (2024-2 6 season) 2024 03/28/2021, 08/09/2020, 07/07/2020 Influenza Vaccine (#1) 2024 02/11/2021, 2012 DTaP/Tdap/Td Vaccine (2 - Td or Tdap) 04/20/2033 04/20/2023 Procedures Procedure Name Priority Date/Time Associated Diagnosis Comments EGFR STAT 12/12/2023 3:15 PM CDT HEMOGLOBIN A1C Routine 08/15/2023 4:59 AM CDT LIPID PANEL Routine 05/23/2023 5:51 AM REFINERY OPERATOR from Last 3 Months or Most Recently Relevant to Health Maintenance Results * eGFR (12/12/2023 3:15 PM CDT) eGFR 63 >=60 mL/min/1. 73 m2 Comment: Interpretive Data Reference Interval Normal >/= 90 mL/min/1.73m2 Mildly decreased* 60 - 89 mL/min/1.73m2 Mildly to moderately decreased 45 - 59 mL/min/1.73m2 Moderately to severely decreased 30 - 44 mL/min/1.73m2 Severely decreased 15 - 29 mL/min/1.73m2 Kidney Failure < 15 mL/min/1.73m2 *Relative to young adult level Estimated glomerular filtration rate is determined by the 2020 CKD-EPI equation recommended by the National Kidney Foundation (A Unifying Approach to GFR Estimation: Recommendations of the NKF-ASK Task Force on Reassessing the Inclusion of Race in Diagnosing Kidney Disease, JASN 202). The CKD-EPI equation should not be used for patients with unstable renal function and has not been validated in children and those over 70. Current interpretive data was last reviewed 2021. Blood 12/12/2023 3:15 PM CDT 12/12/2023 3:51 PM CDT us Arturo Conner MD LAB BLOOD ORDERABLES Final Resul t [facility] Department [place] [address] * (ABNORMAL) Hemoglobin A1c (08/15/2023 4:59 AM CDT) Hgb A1C 7.9(H) 4.0 - 5.6 % Estimated Average Glucose 180 mg/dL [facility] Comment: The ADA recommends reporting an estimated Average Glucose (eAG) with all Hemoglobin A1c results using the equation derived from a study of 507 normal and diabetic adults. Minority populations were underrepresented and children were not included. (Diabetes Care 2020; 43(S1): S66-S76). The eAG is not equivalent to a fasting glucose. Blood 08/15/2023 4:59 AM CDT 08/15/2023 5:29 AM CDT Ute Saleh MD LAB BLOOD ORDERABLES Final Result [facility] Department [place] [address] * (ABNORMAL) Lipid panel (05/23/2023 5:51 AM REFINERY OPERATOR) Pathologist [facility] Cholesterol 152 30 - 199 mg/dL [facility] Comment: Interpretive Data Ages < or = 19 years Acceptable: <170 mg/dL Borderline high: 170-199 mg/dL High: >or= 200 mg/dL Ages > or = 20 years Desirable: <200 mg/dL Borderline high: 200-239 mg/dL High: >or= 240 mg/dL Literature References: 1. Expert Panel on Integrated Guidelines for Cardiovascular Health and Risk Reduction in Children and Adolescents. Pediatrics 2011;128:S213 2. NCEP Expert Panel. Circulation 2004;110:227 Current Interpretive Data was last revised on 2017. Testing performed by: [facility], [address] [place] [address]., [id number] Triglycerides 166(H) <=149 mg/dL [facility] Comment: Interpretive Data Ages < or = 9 years Acceptable: <75 mg/dL Borderline high: 75-99 mg/dL High: >or= 100 mg/dL Ages 10 to 20 years Acceptable: <90 mg/dL Borderline high: 90-129 mg/dL High: >or= 130 mg/dL Ages > or = 20 years Desirable: <150 mg/dL Borderline high: 150-199 mg/dL High: 200-499 mg/dL Very high: >or= 499 mg/dL Literature References: 1. Expert Panel on Integrated Guidelines for Cardiovascular Health and Risk Reduction in Children and Adolescents. Pediatrics 2011;128:S213 2. NCEP Expert Panel. Circulation 2004;110:227 Current Interpretive Data was last revised on 2017. Testing performed by: [address] [address] HDL 47 >=40 mg/dL [facility] Comment: Interpretive Data Ages < or = 19 years Acceptable: >45 mg/dL Borderline low: 40-45 mg/dL Low: <40 mg/dL Ages > or = 20 years Desirable: >or= 60 mg/dL Low: <40 mg/dL Literature References: 1. Expert Panel on Integrated Guidelines for Cardiovascular Health and Risk Reduction in Children and Adolescents. Pediatrics 2011;128:S213 2. NCEP Expert Panel. Circulation 2004;110:227 Current Interpretive Data was last revised on 2017. Testing performed by: [address] [address] LDL, calculated 72 <=129 mg/dL [facility] Comment: Interpretive Data Ages < or = 19 years Acceptable: <110 mg/dL Borderline high: 110-129 mg/dL High: >or= 130 mg/dL Ages > or = 20 years Optimal: <100 mg/dL Near optimal: 100-129 mg/dL Borderline high: 130-159 mg/dL High: >160 mg/dL Literature References: 1. Expert Panel on Integrated Guidelines for Cardiovascular Health and Risk Reduction in Children and Adolescents. Pediatrics 2011;128:S213 2. NCEP Expert Panel. Circulation 2004;110:227 Current Interpretive Data was last revised on 2017. Testing performed by: [address] [address] Non-HDL Cholesterol 105 mg/dL [facility] Comment: Interpretive Data Ages < or = 19 years Acceptable: <120 mg/dL Borderline high: 120-144 mg/dL High: >145 mg/dL Ages > or = 20 years When triglycerides are >200 mg/dL, Non-HDL cholesterol is a secondary target of therapy with treatment goals that are 30 mg/dL greater than the LDL cholesterol target. Literature References: 1. Expert Panel on Integrated Guidelines for Cardiovascular Health and Risk Reduction in Children and Adolescents. Pediatrics 2011;128:S213 2. NCEP Expert Panel. Circulation 2004;110:227 Current Interpretive Data was last revised on 2017. Testing performed by: [facility], [address] [place] [address]., [id number] Chol/HDL ratio 3 [facility] Comment:Testing performed by : [address] [id number] Blood 05/23/2023 5:51 AM REFINERY OPERATOR 05/23/2023 6:08 AM REFINERY OPERATOR us Cira Sullivan MD LAB BLOOD ORDERABLES Final Result Performing Organization Address City/State/[facility] Co de Phone Number [facility] [address] [facility] Department [place] [address] from Last 3 Months or Most Recently Relevant to Health Maintenance Additional Health Concerns Infection Onset Date Last Indicated MDR gram neg/ESBL 08/02/2023 08/02/2023 Insurance [facility] AD[employer] [place] [address] * Guarantor: Caridad Cardona Account Type Relation to Patient Date of Phone Billing Address Personal/Family Self 1940 [address] [place] [address] Advance Directives For more information, please contact: [phone] Documents on File Type Date Recorded 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 Use antibiotics, IV Fluids, and medical treatment unless specifically selected below: No intubationNo cardioversion * Full Code Date Activated Date Inactivated Comments 08/03/2023 1:01 AM 08/20/2023 10:19 AM * Full Code Date Activated Date Inactivated Comments 05/22/2023 9:29 PM 05/31/2023 8:26 PM * Full Code Date Activated Date Inactivated Comments 12/07/2022 7:45 PM 12/12/2022 5:02 PM Healthcare Agents on File Name Relationship Healthcare Agent [facility] p Communication Rafael Del Rio Daughter Health Care Agent Care Teams Hospice Art Therapist Relationship Specialty Start Date End Date Shan Snider MD [address] [address] PCP - General Family Medicine 08/06/21 Erasto Vera MD [address] [place] [address] [address] Consulting Physician Cardiology 12/12/22 Louie Moreno MD [address] [place] [address] [place] [id number] Consulting Physician Pulmonary Disease 12/12/22
[2025-02-07 17:02] LABS: Hematocrit 36.1 % (37.0-47.0); Hemoglobin 11.6 g/dL (12.0-15.0); Immature Granulocyte Percent A 0.3 % (0-0.5); Lymphocytes Absolute Auto 1.66 K/mm3 (0.9-3.2); Mean Corpuscular HGB Conc 32.1 g/dl (32-36); Mean Corpuscular Hemoglobin 28.7 pg (26-34); Mean Corpuscular Volume 89.4 fl (80-100); Nucleated Red Blood Cells Absolute Auto 0.000 K/mm3 (0.0-0.012); Nucleated Red Blood Cells Perc 0.0 % (0.0-0.2); Platelet Count Result 235 k/mm3 (150-375); Red Blood Count 4.04 M/mm3 (4.2-5.4); White Blood Count 10.5 K/mm3 (4.5-10.0)
[2025-02-07 17:14] LABS: Hemoglobin A1C 5.1 % (<5.7)
[2025-02-07 17:23] LABS: Iron 53 ug/dL (37-170)
[2025-02-07 17:33] LABS: Percent Iron Saturation 24 % (20-50)
[2025-02-07 17:46] LABS: Free T4 Free Thyroxine 1.17 ng/dL (0.78-2.19)
[2025-02-07 17:54] LABS: Alanine Aminotransferase 82 U/L (6-35); Albumin Level 3.3 g/dL (3.5-5.1); Alkaline Phosphatase 100 U/L (38-126); Anion Gap 7 mmol/L (4-12); Aspartate Amino Transferase 61 U/L (14-36); Bilirubin,Total 0.4 mg/dL (0.2-1.3); Blood Urea Nitrogen 59 mg/dL (7-17); Calcium 9.2 mg/dL (8.4-10.2); Carbon Dioxide 23 mmol/L (22-30); Chloride 106 mmol/L (98-107); Cholesterol 145 mg/dL (0-200); Estimated Glomerular Filt Rate 34; Glucose 118 mg/dL (65-110); HDL Direct 58 mg/dL; Potassium 4.6 mmol/L (3.4-5.0); Sodium 136 mmol/L (137-145); Total Protein 6.4 g/dL (6.3-8.2); Triglycerides 219 mg/dL (<150)
[2025-02-07 18:04] LABS: Ferritin 149.00 ng/mL (11.1-264)
[2025-02-07 18:24] LABS: Thyroid Stimulating Hormone 3.210 uIU/mL (0.465-4.680)
[2025-02-07 18:59] LABS: Vitamin B12 490.0 pg/mL (239-931)
== END 2025-02-07 16:01 | disposition home or self-care (01) ==
PROVIDERS: PCP Family Medicine; Visit Provider Family Medicine
DX: D64.9 Anemia, unspecified (principal); E11.9 Type 2 diabetes mellitus without complications; E78.2 Mixed hyperlipidemia; E03.9 Hypothyroidism, unspecified
CPT/HCPCS: 36415; 80048; 80061; 80076; 82607; 82728; 82746; 83036; 83540; 83550; 84439; 84443; 85025